=== PATIENT | male | born 1960 | race Caucasian/White ===

== ENCOUNTER 2020-05-20 02:40 | Inpatient (IN) | payer OTHER ==
[~2020-05-20] VITALS: Ht 175.3 cm; Wt 83.2 kg
[2020-05-20 02:59] LABS: BASOPHILS ABSOLUTE AUTO 0.08 K/mm3 (0.00-0.23); BASOPHILS PERCENT AUTO 1 % (0-2); EOSINOPHILS ABSOLUTE AUTO 0.17 K/mm3 (0.00-0.68); EOSINOPHILS PERCENT AUTO 2 % (0-6); Hematocrit 39.6 % (37.0-53.0); Hemoglobin 12.4 g/dL (13.5-17.5); IMMATURE GRAN ABSOLUTE AUTO 0.04 K/mm3 (0.00-0.10); IMMATURE GRAN PERCENT AUTO 0 % (0-1); LYMPHOCYTES ABSOLUTE AUTO 2.35 K/mm3 (0.84-5.20); LYMPHOCYTES PERCENT AUTO 23 % (21-46); MONOCYTES ABSOLUTE AUTO 1.31 K/mm3 (0.16-1.47); MONOCYTES PERCENT AUTO 13 % (4-13); Mean Corpuscular HGB Conc 31.3 g/dL (31.5-36.5); Mean Corpuscular Volume 93 fL (80-100); Mean Platelet Volume 10.8 fL (9.1-12.4); NEUTROPHILS ABSOLUTE AUTO 6.28 K/mm3 (1.96-9.15); NEUTROPHILS PERCENT AUTO 61 % (41-73); Platelet Count 206 K/mm3 (150-400); RDW Coefficient Variation 14.6 % (11.7-14.2); RDW Standard Deviation 50.3 fL (35.1-46.3); Red Blood Cell Count 4.27 M/mm3 (4.30-5.90); White Blood Cell Count 10.23 K/mm3 (4.00-11.30)
[2020-05-20 03:11] LABS: Alanine Aminotransfer (ALT/SGP 29 U/L (12-78); Albumin, Blood 3.3 g/dL (3.4-5.0); Albumin/Globulin Ratio 0.8 (0.8-1.8); Alk Phos 61 U/L (50-136); Anion Gap 2 mmol/L (6-16); Aspartate Aminotrans (AST/SGOT 34 U/L (12-37); Bilirubin, Total 0.6 mg/dL (0.1-1.0); Blood Urea Nitrogen 13 mg/dL (8-24); Bun/Creatinine Ratio 14.2 (12.0-20.0); CO2, Blood 28 mmol/L (21-32); Calcium, Blood 8.7 mg/dL (8.5-10.1); Chloride, Blood 110 mmol/L (98-108); Creatinine, Blood 0.91 mg/dL (0.60-1.20); Ethanol (Alcohol), Blood, Med <3 mg/dL; Globulin, Blood 4.2 g/dL (2.2-4.0); Glomerular Filtration Rate >60 (60-); Glucose, Blood 118 mg/dL (70-99); Potassium, Blood 3.8 mmol/L (3.5-5.5); Salicylate 2.7 mg/dL (2.8-20.0); Sodium, Blood 140 mmol/L (136-145); Total Protein, Blood 7.5 g/dL (6.4-8.2)
[2020-05-20 03:13] LABS: Acetaminophen, Random <2.0 ug/mL (10.0-30.0)
[2020-05-20] MEDS ORDERED: HYDPAM50 (03:19)
[2020-05-20] MEDS ORDERED: CLON.1 (03:19)
[2020-05-20] MEDS ORDERED: Naltrexone HCl50 MG PO (03:20)
[2020-05-20] MEDS ORDERED: METO25ER (03:20)
[2020-05-20] MEDS ORDERED: PROM25 (03:20)
[2020-05-20] MEDS ORDERED: TRAZ50 PO (03:20)
[2020-05-20 05:26] LABS: U Amphetamine Screen Not Detected; U Barbituate Screen Not Detected; U Benzodiazapine Screen DETECTED; U Buprenorphine Screen Not Detected; U Cannabinoids Screen DETECTED; U Cocaine Screen Not Detected; U Methadone Screen Not Detected; U Methamphetamine Screen Not Detected; U Opiates Screen Not Detected; U Oxycodone Screen Not Detected; U Phencyclidine Screen Not Detected; U Propoxyphene Screen Not Detected
--- NOTE | 2020-05-20 05:28 | NUR ---
PT ADMITTED TO ROOM ICU 5 UNDER ICU STATUS FROM ED. REPORT RECEIVED. PT PRESENTS TO ROOM CONFUSED AND DOES NOT FOLLOW DIRECTIONS. CIWA SCORING TO FOLLOW. PRECEDEX DRIP INITIATED AT 0.5 MCG/KG/HOUR AND HAS BEEN INCREASED TO 0.7 MCG'S. PT IS NOT COHERENT TO PARTICIPATE IN HISTORY OR INTERVIEW. WILL REVIEW CHART AND PLAN OF CARE FOR THIS PT.
--- NOTE | 2020-05-20 07:23 | NUR ---
ASSUMED CARE NOTE REPORT RECEIVED FROM ROGELIO JOHN. BEDSIDE REPORT DONE. PT RESTING WITH EYES CLOSED, BREATHING EVEN AND UNLABORED ON O2 AT 2LPM VIA NC IN MOUTH. SPO2 93%. RHYTHM SHOWING NORMAL SINUS WITH HR IN 50-60S. NO S/SX DISTRESS NOTED. SBW RESTRAINTS IN PLACE, PRECEDEX GTT AT 0.6MCG/KG/HR. RAMIREZ CATHETER PATENT AND DRAINING TO GRAVITY. CALL LIGHT IN REACH. WILL CONT TO MONITOR PT.
--- NOTE | 2020-05-20 08:12 | NUR ---
DR GREER ROUNDS DR GREER ROUNDED, UPDATED ON PT STATUS. NO CHANGE TO PLAN OF CARE AT THIS TIME. WILL CONT TO MONITOR PT.
[2020-05-20 08:25] LABS: Source, Urine Catheter
[2020-05-20 08:36] LABS: Appearance, Urine Clear (Clear); Bilirubin, Urine Neg (Neg); Blood, Urine 3+ (Neg); Color, Urine Yellow (P-Yellow); Glucose Qualitative, Urine Neg (Neg); Ketones, Urine Neg (Neg); Leukocyte Esterase, Urine Neg (Neg); Nitrite, Urine Neg (Neg); Protein, Urine Neg (Neg); Urobilinogen, Urine NORM (Normal)
[2020-05-20 08:41] LABS: White Blood Cells, Urine 0-2 /hpf (0-5)
[2020-05-20 08:42] LABS: Bacteria Few /hpf; Red Blood Cells, Urine 50-100 /hpf (0-2); Squamous Epithelial Cells Rare /hpf (Few)
[2020-05-20 08:46] LABS: U Amphetamine Screen Not Detected; U Barbituate Screen Not Detected; U Benzodiazapine Screen DETECTED; U Buprenorphine Screen Not Detected; U Cannabinoids Screen DETECTED; U Cocaine Screen Not Detected; U Methadone Screen Not Detected; U Methamphetamine Screen Not Detected; U Opiates Screen Not Detected; U Oxycodone Screen Not Detected; U Phencyclidine Screen Not Detected; U Propoxyphene Screen Not Detected
--- NOTE | 2020-05-20 11:23 | NUR ---
PRECEDEX GTT TITRATE TITRATED PRECEDEX GTT DOWN FROM 0.6MCG/KG/HR TO 0.4MCG/KG/HR PT PULSE IN 40S. BP STABLE. PT SNORING. AROUSABLE TO STIMULI. NO S/SX DISTRESS NOTED. WILL CONT TO MONITOR PT.
--- NOTE | 2020-05-20 11:56 | NUR ---
SHIFT NOTE PT OPENING EYES SPONTANEOUSLY, INCREASINGLY RESTLESS. PT MUMBLING AND VOCALIZATIONS DIFFICULT TO MAKE OUT, HOWEVER, PT ABLE TO STATE NAME AND . PT WITH LOOSE, NONPRODUCTIVE COUGH. WILL CONT TO MONITOR PT.
--- NOTE | 2020-05-20 14:39 | NUR ---
CALL TO DR GREER CALL TO DR GREER, NO ANSWER. AWAITING RETURN CALL REGARDING UNCONTROLLED BP. PT WITH ELEVATED BP AND LOW HR IN 40-50S. PRECEDEX GTT TITRATED TO 0.4MCG/KG/HR DUE TO LOW HR ATIVAN ADMINISTERED PRN NOTED TO HELP WITH HIGH BP ALONG WITH AGITATION AND RESTLESSNESS, ALTHOUGH EFFECT ON BP IS TEMPORARY.
--- NOTE | 2020-05-20 15:29 | NUR ---
CALL TO DR GREER CALL TO DR GREER REGARDING PT SBP IN 200S WITH DBP IN 110S. ORDER RECEIVED FOR HYDRALAZINE 20MG IV NOW ONE TIME DOSE AND HYDRALAZINE 10MG IV Q6P FOR SBP GREATER THAN 185.
--- NOTE | 2020-05-20 16:55 | NUR ---
CALL FROM PT BROTHER, CLAU PT BROTHER, CLAU, CALLED TO OBTAIN UPDATE. UNFORTUNATELY, CLAU IS NOT ON PT'S RELEAS OF VERBAL INFORMATION FORM THEREFORE I WAS UNABLE TO PROVIDE HIM AN UPDATE. CLAU WAS UNHAPPY WITH THIS AND HUNG UP AFTER STATING "WELL YOU HAVE HIM GIVE YOU THE OKAY WHEN HE WAKES UP".
--- NOTE | 2020-05-20 17:09 | NUR ---
BP CUFF FAILS AUTOMATIC BP CUFF FAILS OFF AN ON REQUIRING THE FREQUENCY OF CHECKS TO BE RESELECTED. BP HAS TRENDED DOWN SINCE ADMINISTRATION OF HYDRALAZINE. WILL CONT TO MONITOR THIS.
--- NOTE | 2020-05-20 17:22 | NUR ---
CONSENT FOR VERBAL PT AWAKE, OPENING EYES SPONTANEOUSLY AND RESPONDING TO VERBAL STIMULI. ASKED PT IF HE HAD ANY BROTHERS, HE REPLIED "YES". ASKED PT TO STATE THE BROTHERS NAMES, HE REPORTED "CHELSI, CLAU, BERLIN, AND TRELL". NILAM NARANJO RN, TO ROOM TO SECOND PT'S CONSENT FOR BROTHERS CLAU AND CHELSI WHO HAVE CALLED FOR UPDATES TO BE GIVEN INFORMATION. CONSENT FOR VERBAL RELEASE OF INFORMATION SIGNED BY THIS RN AND NILAM NARANJO RN.
--- NOTE | 2020-05-20 18:31 | NUR ---
INCREASED AGITATION PT INCREASINGLY AGITATED, WIGGLED HIMSELF DOWN IN THE BED. DESPITE SBW RESTRAINTS TO WRISTS WAS ABLE TO RIP RAMIREZ STAT LOCK OFF LEG AND PULSE OX OFF FINGER. ATIVAN 2MG IV GIVEN AND PRECEDEX GTT TITRATED UP TO 0.5MCG/KG/HR. PT BOOSTED AND REPOSITIONED WITH HELP FROM NILAM NARANJO RN. WILL CONT TO MONITOR PT.
--- NOTE | 2020-05-20 20:00 | NUR ---
PT IS RESTLESS AND AGITATED. PULLS AGAINST RESTRAINTS FREQUENTLY AND TRYING TO GET OOB. WRIST RESTRAINTS ON. ORIENTED TO PERSON. STATES YEAR "2000". WILL FOLLOW SIMPLE COMMANDS AT TIMES. THINKS HE IS AT "[facility]". SPEECH IS GARBLED. PRN ATIVAN GIVEN FOR CIWA 25. PRECEDEX GTT RUNNING WELL. BP TRENDING UP. PRN HYDRALAZINE NOT DUE YET. AFTER ATIVAN PT IS CALMING DOWN. WILL FALL TO SLEEP AT TIMES. NO SIGN OF DISTRESS.
[2020-05-21 09:02] LABS: Hematocrit 40.4 % (37.0-53.0); Hemoglobin 12.8 g/dL (13.5-17.5); Mean Corpuscular HGB Conc 31.7 g/dL (31.5-36.5); Mean Corpuscular Volume 95 fL (80-100); Mean Platelet Volume 10.7 fL (9.1-12.4); Platelet Count 191 K/mm3 (150-400); RDW Coefficient Variation 14.7 % (11.7-14.2); RDW Standard Deviation 50.8 fL (35.1-46.3); Red Blood Cell Count 4.27 M/mm3 (4.30-5.90); White Blood Cell Count 13.44 K/mm3 (4.00-11.30)
[2020-05-21 09:19] LABS: Albumin, Blood 2.9 g/dL (3.4-5.0); Anion Gap 6 mmol/L (6-16); Blood Urea Nitrogen 8 mg/dL (8-24); Bun/Creatinine Ratio 9.5 (12.0-20.0); CO2, Blood 26 mmol/L (21-32); Calcium, Blood 8.3 mg/dL (8.5-10.1); Chloride, Blood 110 mmol/L (98-108); Creatinine, Blood 0.85 mg/dL (0.60-1.20); Glomerular Filtration Rate >60 (60-); Glucose, Blood 112 mg/dL (70-99); Magnesium, Blood 1.8 mg/dL (1.6-2.4); Phosphorus, Blood 3.9 mg/dL (2.5-4.9); Potassium, Blood 3.6 mmol/L (3.5-5.5); Sodium, Blood 142 mmol/L (136-145)
--- NOTE | 2020-05-21 12:15 | NUR ---
PT ASSESSED AT 0715. PT SLEEPING IN BED WITH PRECEDEX GTT RUNNING AT 0.7MCG FOR SEVERE ETOH W/D. PT DIFFICULT TO AROUSE AND REQUIRED DEEP SUCTIONING. UNABLE TO GO DOWN NARES D/T DEVIATED SEPTUM. PT WITH LITTLE GAG AND WEAK COUGH. NT SUCTION TUBE PLACED DOWN BACK OF THROAT. COPIOUS AMTS OF THICK DARK YELLOW/LAUGHLIN SPUTUM SX'D. SATS INCREASED FROM 92% ON 2L TO 96%. PRECEDEX TITRATED DOWN TO 0.3MCG AT 0745. WITHIN 1 HR PT AWAKE THRASHING, AGITATED, PULLING ON RESTRAINTS. PT ABLE TO STATE NAME AND BIRTHDATE ONLY, SPEECH SLURRED. PT HALLUCINATING. CIWA>20. PRECEDEX INCRESEASED BACK UP TO 0.7MCG. ATIVAN GIVEN WELL WITHOUT MUCH EFFECT. HALDOL GIVEN; PT SLEEPING AND RELAXED NOW. BANANA BAG STARTED. PT'S BROTHER GIVEN UPDATE VIA PHONE.
--- NOTE | 2020-05-21 18:34 | NUR ---
PT REQUIRED PRECEDEX AT 0.7MCG FOR MAJORITY OF SHIFT WITH PRN ATIVAN PUSHES FOR SIGNIFICANT AGITATION. PT SLEEPING NOW, APPEARS COMFORTABLE/RESTFUL. PT ALSO REQUIRED FREQUENT DEEP ORAL SUCTIONING. SATS REMAINED >95% ON 2L.
--- NOTE | 2020-05-21 19:00 | NUR ---
PT SEDATED ON PRECEDEX, RESTING COMFORTABLY. ABLE TO FOLLOW SIMPLE COMMANDS, ORIENTATED TO SELF. PT ON 2L NC. VSS. BILATERAL SOFT WRIST RESTRAINTS ON DUE TO AGITATION.
--- NOTE | 2020-05-22 08:18 | NUR ---
PT SLEEPING THIS AM AT 0715, PRECEDEX GTT AT 0.7MCG FOR SEVERE ETOH W/D. PT AWOKE AT 0745 YELLING PROFANITIES. ABLE TO REDIRECT AND CALM PT SOMEWHAT. PT ORIENTED TO SELF. ABLE TO STATE YEAR WITH COAXING. PT OTHERWISE VERY CONFUSED WITH VISUAL AND AUDITORY HALLUCINATIONS. PT REQUESTED WHISKEY. PT ABLE TO COUGH, UNABLE TO CLEAR SECRETIONS COMPLETELY; REQUIRED DEEP SUCTION TO BACK OF THROAT/WEAK GAG. COPIOUS AMTS OF THICK DARK LAUGHLIN SECRETIONS SX'D. PT WITH AUDIBLE WHEEZES; RT CALLED, UDN GIVEN. PT C/O NAUSEA AND HEADACHE. TREMORS SEVERE. PT STARTED TO BECOME AGITATED; ATIVAN GIVEN.
--- NOTE | 2020-05-22 17:51 | NUR ---
PT WOKE UP AT 1500 AND ASKED A COUPLE APPROPRIATE QUESTIONS. PRECEDEX DECREASED TO 0.6MCG AND TITRATED OFF BY [id number]. RESTRAINTS REMOVED AT 1600. PT AWAKE, WATCHING TV. PT'S VOICE STILL SLURRED/GARBLED BUT STARTING TO CLEAR. PT FORGETFUL BUT CALM, COOPERATIVE, AND FOLLOWING DIRECTIONS. PT COUGHING AND CLEARING SECRETIONS. PT ABLE TO SWALLOW WATER SAFELY. LIBRIUM PO GIVEN; PT ABLE TO TAKE PO PILLS WELL. CIWA 6.
--- NOTE | 2020-05-22 18:31 | NUR ---
PT CONT TO WAKE UP MORE, SLURRED SPEECH SLOWLY IMPROVING, MEMORY IMPROVING. NICOTINE PATCH ORDERED AND PLACED PT FEELING NICOTINE W/D'S. DIET ADVANCED TOLERATED. PT FED REG TRAY; DID WELL. CONT TO CLEAR AIRWAY. 02 TITRATED DOWN TO 2L.
--- NOTE | 2020-05-22 21:16 | NUR ---
PT RESTING IN BED. IMPULSIVE AT TIMES. SPEECH IS SLURRED. STATES DECEMBER THE MONTH AND 2020 FOR THE YEAR. KNOWS THE PRESIDENT AND ABLE TO STATE HE IS IN [place]. KEEPS ASKING WHAT HAPPENED TO HIM TO WHY HE IS HERE. EASILY REDIRECTABLE. WAS ABLE TO STAND AND TAKE A COUPLE OF SIDE STEPS TOWARDS HOB AFTER HE SAT AT THE SIDE OF THE BED. GAIT IS UNSTEADY BUT DID WELL FOLLOWING DIRECTIONS. USING CALL LIGHT SOMETIMES OTHERWISE HE WILL YELL OUT "NURSE". BED ALARM ARMED FOR SAFETY.
[2020-05-23 04:47] LABS: BASOPHILS ABSOLUTE AUTO 0.06 K/mm3 (0.00-0.23); BASOPHILS PERCENT AUTO 1 % (0-2); EOSINOPHILS PERCENT AUTO 1 % (0-6); Hemoglobin 11.6 g/dL (13.5-17.5); IMMATURE GRAN ABSOLUTE AUTO 0.04 K/mm3 (0.00-0.10); IMMATURE GRAN PERCENT AUTO 0 % (0-1); LYMPHOCYTES ABSOLUTE AUTO 1.29 K/mm3 (0.84-5.20); LYMPHOCYTES PERCENT AUTO 13 % (21-46); MONOCYTES ABSOLUTE AUTO 1.83 K/mm3 (0.16-1.47); MONOCYTES PERCENT AUTO 18 % (4-13); Mean Corpuscular HGB 29.4 pg (26.0-34.0); Mean Corpuscular HGB Conc 31.4 g/dL (31.5-36.5); Mean Corpuscular Volume 94 fL (80-100); Mean Platelet Volume 10.9 fL (9.1-12.4); NEUTROPHILS ABSOLUTE AUTO 6.96 K/mm3 (1.96-9.15); NEUTROPHILS PERCENT AUTO 68 % (41-73); Platelet Count 193 K/mm3 (150-400); RDW Coefficient Variation 14.5 % (11.7-14.2); RDW Standard Deviation 50.3 fL (35.1-46.3); Red Blood Cell Count 3.94 M/mm3 (4.30-5.90); White Blood Cell Count 10.28 K/mm3 (4.00-11.30)
[2020-05-23 05:00] LABS: Albumin, Blood 2.5 g/dL (3.4-5.0); Anion Gap 3 mmol/L (6-16); Blood Urea Nitrogen 9 mg/dL (8-24); Bun/Creatinine Ratio 10.1 (12.0-20.0); CO2, Blood 30 mmol/L (21-32); Calcium, Blood 8.2 mg/dL (8.5-10.1); Chloride, Blood 109 mmol/L (98-108); Creatinine, Blood 0.89 mg/dL (0.60-1.20); Glomerular Filtration Rate >60 (60-); Glucose, Blood 100 mg/dL (70-99); Phosphorus, Blood 3.5 mg/dL (2.5-4.9); Potassium, Blood 3.4 mmol/L (3.5-5.5); Sodium, Blood 142 mmol/L (136-145)
--- NOTE | 2020-05-23 06:31 | NUR ---
SUMMARY PT RESTING IN BED. MENTATION IS CLEARING MORE THIS AM. PT IS ABLE TO STATE NAME AND , PRESIDENT, CITY, AND YEAR 2020. HE STATES MONTH JANUARY. HE IS ASKING APPROPRIATE QUESTIONS AND MAKING NEEDS KNOWN. CIWA WAS 8-16 DURING THE NIGHT. ATIVAN AND LIBRIUM WAS ALTERNATED. THIS AM CIWA IS 8 AND GAVE LIBRIUM. TOOK PT TO XRAY THIS AM AND HE WAS ABLE TO FOLLOW COMMANDS AND HAS BEEN PLEASANT AND COOPERATIVE. SPEECH IS STILL A LITTLE SLURRED BUT HE DOES NOT HAVE TEETH IN. NO SIGN OF DISTRESS THIS AM, BED ALARM ARMED FOR SAFETY.
--- NOTE | 2020-05-23 09:37 | NUR ---
CARE ASSUMED ASSESSMENT COMPLETED. PT AWAKE, ORIENTED TO SELF AND PLACE, CALM AND COOPERATIVE. CIWA SCORE 8, MEDICATED WITH TYLENOL FOR HEADACHE. PT GIVEN BREAKFAST, TOLERATED WELL, ATE INDEPENDENTLY. VSS, BED ALARMED. PT ASSISTED TO MAKE PHONE CALLS, DENIES OTHER NEEDS.
--- NOTE | 2020-05-23 17:36 | NUR ---
END OF SHIFT/TRANSFER TO MED FLOOR PT PLEASANT AND COOPERATIVE THIS SHIFT, BECAME SLIGHTLY MORE CONFUSED, THOUGHT HE WAS IN [facility]. MEDICATED WITH ATIVAN X2 THIS SHIFT AND LIBRIUM X2, HYDRALAZINE X1 FOR HTN. LS COARSE, PT C/O SOB THIS EVENING, NEB TREATMENT ADMINISTERED BY RT WITH IMPROVEMENT IN SOB AND LS. PRODUCTIVE COUGH REMAINS. IV TO R FA AND PG TO R UPPER ARM PATENT, DRESSINGS CDI. PT DID NOT HAVE A GOOD APPETITE TODAY, STATES "EVERYTHING TASTES LIKE METAL," DENIES NAUSEA. NO EMESIS, NO SEIZURE ACTIVITY, NO AGITATION THIS SHIFT. DC E BUSINESS MANAGER IN TO SPEAK WITH PT, PT DISCHARGED FROM [facility] TODAY, REPORTED PLAN IS TO STAY AT [facility] UNTIL A RESIDENTIAL ETOH TX BED OPENS UP [place] THAT PT CAN BE ADMITTED TO. REPORT TO ROGELIO WARE, PT TO MEDICAL FLOOR RM 326 VIA WITH CHART AND BELONGINGS.
--- NOTE | 2020-05-23 18:37 | NUR ---
PT TRANSFERED FROM ICU PT TRANSFERED. ORIENTED TO ROOM. CALL LIGHT & PHONE IN REACH. PT CONFUSED. DIRECTABLE HOWEVER. CONFUSES THE CALL LIGHT & THE PHONE OFTEN. WILL CONTINUE TO MONITOR UNTIL TURNOVER IS COMPLETE.
--- NOTE | 2020-05-23 22:18 | NUR ---
CIWAS CONTINUE, CURRENTLY 8, CLIMBING OUT OF BED, SPIT DENTURES ON FLOOR, ATIVAN 2 MG IV GIVEN, BED ALARM 0N. CALL LIGHT IN REACH
--- NOTE | 2020-05-24 03:31 | NUR ---
SHIFT SUMMARY PT CURRENTLY DETOXING FROM ETOH, HAS BEEN NONRECEPTIVE TO REDIRECTION. CIWA'S 8-10 AND ATIVAN AND LIBRIUM, SEE MAR FOR DETAILS, AND STILL AGITATED. PLACED IN YAIR VEST FOR SAFETY, TO PREVENT HIS PULLING OUT RAMIREZ HE TRIED TO FALL OUT OF BED. CURRENTLY AGITATION ESCALATED TO CUSSING AND CALLING OUT. HALDOL IV 3 MG ADMINISTERED. WILL CONTINUE TO ATTEMPT TO REDIRECT TO CALM PT. CALL LIGHT IN REACH
--- NOTE | 2020-05-24 17:50 | NUR ---
CIWA SCORE 17; SINCE START OF THIS SHIFT, PATIENT CONTINUOUSLY TRYING TO GET OOB, PULLING AGAINST RESTRAINTS. A&O TO SELF ONLY, STATING THAT HE NEEDS TO "GO ACROSS THE STREET", MUMBLING TO HIMSELF, OFFERED ASSISTANCE TO CALL HIS BROTHER BUT NO NUMBER FOUND. HAS BEEN GIVEN A TOTAL OF 9 MG ATIVAN IV, 3 MG IV HALDOL, SCHEDULED LIBRIUM, ALL WITH NO EFFECT. PREVIOUS CIWA SCORE AT 1200 WAS ALSO 17. SPOKE TO DR. HOWARD BY PHONE, REQUESTED TRANSFER TO ICU PT MAY NEED PRECEDEX GTT FOR A SHORT TIME UNTIL DETOX IS COMPLETED. TRANSFER ORDER RECEIVED AND PT MOVED TO ICU ROOM 9 AT 1800. GAVE HALDOL 3 MG IV JUST PRIOR TO TRANSFER PER DR. HOWARD AND PT WAS CALM DURING TRANSFER.
--- NOTE | 2020-05-24 18:57 | NUR ---
Recieved report from Kavitha MERCADO.Patient arrived in baylee and UE soft wrist restraints. He is arousable with minimal response. He is on RA and sats low 90%'s. e was released from restraints and was a four person transfer to bed and reapplied restraints and baylee. His HR has been 130-170 and medicated with Zyprexa IM and Ativan 2 mg. Systolic 101 and rates 60's He is still awake and occassionally is pulling at restraints and trying to sit up. Gave report to Collin MERCADO for noc shift
--- NOTE | 2020-05-24 20:03 | NUR ---
ASSUMPTION OF CARE: PT AWAKE BUT NOT ORIENTED. SPEECH IS GARGBLED. WILL NOD HEAD YES TO QUESTIONS. OCC PULLING AT RESTRAINTS TRYING TO SIT UP. IN ST HR 90-160S, IRREGULAR, SBP 100S. LUNG SOUNDS CLEAR. OCC PRODUCTIVE COUGH-ABLE TO CLEAR OWN SECRETIONS. PG NICK-PATENT AND SL. SKIN IS INTACT. WILL CONTINUE TO MONITOR
[2020-05-25 03:39] LABS: Albumin, Blood 2.8 g/dL (3.4-5.0); Anion Gap 3 mmol/L (6-16); Blood Urea Nitrogen 7 mg/dL (8-24); Bun/Creatinine Ratio 7.3 (12.0-20.0); CO2, Blood 31 mmol/L (21-32); Calcium, Blood 8.4 mg/dL (8.5-10.1); Chloride, Blood 111 mmol/L (98-108); Creatinine, Blood 0.96 mg/dL (0.60-1.20); Glomerular Filtration Rate >60 (60-); Glucose, Blood 97 mg/dL (70-99); Phosphorus, Blood 4.6 mg/dL (2.5-4.9); Potassium, Blood 2.9 mmol/L (3.5-5.5); Sodium, Blood 145 mmol/L (136-145)
--- NOTE | 2020-05-25 05:06 | NUR ---
POTASSIUM THIS AM 2.9. SPOKE TO DR NEWMAN. ORDERS RECEIVED FOR 40MEQ KCL IV X 1.
--- NOTE | 2020-05-25 06:00 | NUR ---
SHIFT SUMMARY: PT SLEPT MAJORITY OF SHIFT. WHEN AWAKE PT WAS AGITATED REQUIRING A DOSE OF ATIVAN X 1 AND A DOSE OF HALDOL X1. SPEECH SEEMED MORE CLEAR THIS AM, BUT STILL GARBLED. PT BELIEVES HE IS IN A REHAB FACILITY. PT O2 NEEDS INCREASED STEADILY T/O SHIFT, FABIANA WHEN SLEEPING. PT IS COUGHING UP MOD AMT OF WHITE FROTHY SECRETIONS THAT HAVE REQ SOME SUCTIONING. CURRENTLY ON HIGH FLOW NC AT 10L. PT DESATS TO 88-89% OCC. PT IS IN SR WITH HR IN THE 60-80S. SBP IN THE 130S. PT HAD ONE SMALL BM THIS AM. PG TO NICK INF WITH TKO AND KCL. WILL PASS REPORT TO RACHEL MERCADO
--- NOTE | 2020-05-25 07:12 | NUR ---
Recieved report from Collin MERCADO. Patient supine in bed with HOB at 30 degrees. He responds to his name and follows minimal directions. He yells out occassioanlly and talks to himself frequently. He is on 10L O2 via humidified high flow NC and sats 94%. He has PowerGlide to NICK dressing intact and site WNL's and is infusing first of 2 K rider. His in attends and he is incontinent of urine. He is hypertensive [address]. He is in baylee vest and bilateral soft wrist restraints, skin and circulation checked. He is very tremulous and VALENCIA.
--- NOTE | 2020-05-25 09:30 | NUR ---
Patient slightly more awake and able to still follow minimal commands. Oral care performed as well as am care. Patient tolerated small amounts of apple sauce fo meds and was able to swallow and cough to clear. he has required ongoing hourly suction to clear oral secretions whit thin secretions. He remains on 10 L O2 via high flow humidified and sats 94%. He continues to rest off and on. He pulls at restraints while awake and leans forwards and states he wants up, bilateral soft wrist and baylee remain in place.
--- NOTE | 2020-05-25 11:30 | NUR ---
Patient has been resting. He arouses frequently and talks to self. He is very tremulous. Brother called and gave update and will be down 06/25 around 1200. He remains omn 10L O2 via high flow NC humidified and sats low 90's. He continues to need frequent suction for thick white secretions he is coughing up, The O2 needs to be placed in mouth while sleeping as he is a mouth breather. He had full linen change and bath and attends change. VSS, See EMR. Bilateral soft wrist restraints dc'd at 1030 and he has not been pulling at anything. Tequila remains on as he trys to sit up .
--- NOTE | 2020-05-25 13:30 | NUR ---
No significant changes with patient. Restraints remain off and is mostly directable if he starts to reach at anything and has not been pulling at lines or tubes. He has tolerated pills with [id number] with verey close obs and direction, then oral care done right afterwards.
--- NOTE | 2020-05-25 15:30 | NUR ---
Patient was having increased secretions and started to desat and increased O2 to 13 L O2 and coached him to coughing and cleared secretions and was able to reduce O2 back to the 9 L with High flow NC humidified and sits in his mouth He continues to rest and awakens frequently.VSS, See EMR. Oral care done
--- NOTE | 2020-05-25 17:25 | NUR ---
Patient currently resting on 9L O2 via high flow NC humidified in mouth whiule sleeping. He awakens to verbal stimuli, but not very understandable. He remains out of soft wrist restraints and just has baylee on and tolerates well. He has NS TKO infusing in NICK powerglide. Still very tremulous, no fine motor skills.
--- NOTE | 2020-05-25 19:40 | NUR ---
ASSUMPTION OF CARE: PT ASLEEP IN ROOM. PER REPORT PT IS STILL CONFUSED, CLEARING A LITTLE, ABLE TO FOLLOW COMMANDS. PT IN SR, HR IN THE 60S, SBP IN THE 110S. LUNG SOUNDS ARE COARSE AND DIM IN BASES. CURRENTLY ON 7L HIGH FLOW NC, SPO2 >90%. PT IS REQUIRING FREQUENT ORAL SUCTIONING DUE TO LARGE AMOUNTS OF THICK ORAL SECRETIONS. PER REPORT PT IS ABLE TO TAKE PO MEDS WITH APPLE SAUCE. PT NOT ABLE TO USE URINAL AND NEEDS ASSISTANCE WITH TURNS. PG TO NICK. HAS NS RUNNING AT [facility]. WILL CONTINUE TO MONITOR
--- NOTE | 2020-05-25 21:36 | NUR ---
PT IS HAVING A DIFFICULT TIME CLEARING SECRETIONS, HAS A WEAK COUGH, AND MINIMAL GAG REFLEX. SECRETIONS ARE THICK AND LARGE. HOLDING PO MEDS FOR NOW.
--- NOTE | 2020-05-25 21:37 | NUR ---
CALL PLACED TO JOHANN JUDGE RE PO ZYPREXA. REQUEST TO CHANGE FROM PO TO EITHER SL OR IM. ORDERS RECEIVED TO KEEP ZYPREXA DOSING THE SAME BUT CHANGE TO IM. ZYPREXA 2.5MG IM Q6.
--- NOTE | 2020-05-25 22:25 | NUR ---
UPON COMING ON SHIFT PT WAS ASLEEP. LUNG SOUNDS WERE COARSE AND PT SOUNDED GURGLY WITH A WEAK COUGH. HAS REQUIRED FREQUENT ORAL/DEEP SUCTIONING, BUT WAS HOLDING SATS ABOVE 90% ON 7LNC. DURING DEEP SUCTIONING PT HAD VERY MINIMAL GAG REFLEX. MEDS HELD D/T PT DIFFICULTY CLEARING SECRETIONS. PT IS CURRENTLY REQUIRING ADDITIONAL O2. ON 15L HIGH FLOW NC. PT WAS ON 7L THEN 9L AFTER DESATTING INTO MID 80S. SPO2 NEVER GOT ABOVE 88%. CHRIS RT CALLED TO ASSESS. O2 INCREASED TO 15L. PT WAS SUCTIONED ORALLY AND THEN DEEP SUCTION WAS PERFORMED. PT HAS MINIMAL GAG REFLEX. SECRETIONS ARE THICK AND LARGE. NEB TREATMENT GIVEN WITH LITTLE EFFECT. PT IS CURRENTLY SITTING IN THE CHAIR POSITION. SOUNDS LESS GURGLY AT THIS TIME AND SATS ARE HOLDING AT >90%. WILL CONTINUE TO MONITOR
--- NOTE | 2020-05-25 23:09 | NUR ---
PT DOWN TO 10L NC. SPO2 >90%.
--- NOTE | 2020-05-26 02:05 | NUR ---
PT MORE ALERT, ABLE TO NOD TO ANSWER QUESTIONS, FOLLOWING MORE COMMANDS. ON 10L NC. SPO2 >90%. PT IS ABLE TO COUGH AND DEEP BREATH WHEN ASKED. STILL REQUIRES FREQ SUCTIONING TO CLEAR SECRETIONS AND ORAL CARE. WILL CONTINUE TO MONITOR
--- NOTE | 2020-05-26 03:33 | NUR ---
PT DOWN TO 6LNC. SPO2 >90%
[2020-05-26 03:53] LABS: BASOPHILS ABSOLUTE AUTO 0.09 K/mm3 (0.00-0.23); BASOPHILS PERCENT AUTO 1 % (0-2); EOSINOPHILS ABSOLUTE AUTO 0.02 K/mm3 (0.00-0.68); EOSINOPHILS PERCENT AUTO 0 % (0-6); Hematocrit 41.2 % (37.0-53.0); Hemoglobin 13.1 g/dL (13.5-17.5); IMMATURE GRAN ABSOLUTE AUTO 0.05 K/mm3 (0.00-0.10); IMMATURE GRAN PERCENT AUTO 0 % (0-1); LYMPHOCYTES ABSOLUTE AUTO 1.01 K/mm3 (0.84-5.20); LYMPHOCYTES PERCENT AUTO 6 % (21-46); MONOCYTES ABSOLUTE AUTO 2.53 K/mm3 (0.16-1.47); MONOCYTES PERCENT AUTO 16 % (4-13); Mean Corpuscular HGB 29.8 pg (26.0-34.0); Mean Corpuscular HGB Conc 31.8 g/dL (31.5-36.5); Mean Corpuscular Volume 94 fL (80-100); Mean Platelet Volume 10.6 fL (9.1-12.4); NEUTROPHILS PERCENT AUTO 77 % (41-73); Platelet Count 291 K/mm3 (150-400); RDW Coefficient Variation 14.8 % (11.7-14.2); RDW Standard Deviation 51.7 fL (35.1-46.3); Red Blood Cell Count 4.39 M/mm3 (4.30-5.90)
[2020-05-26 04:06] LABS: Albumin, Blood 2.8 g/dL (3.4-5.0); Anion Gap 7 mmol/L (6-16); Blood Urea Nitrogen 10 mg/dL (8-24); Bun/Creatinine Ratio 10.2 (12.0-20.0); CO2, Blood 26 mmol/L (21-32); Calcium, Blood 8.8 mg/dL (8.5-10.1); Chloride, Blood 112 mmol/L (98-108); Creatinine, Blood 0.98 mg/dL (0.60-1.20); Glomerular Filtration Rate >60 (60-); Glucose, Blood 115 mg/dL (70-99); Magnesium, Blood 1.7 mg/dL (1.6-2.4); Phosphorus, Blood 3.7 mg/dL (2.5-4.9); Potassium, Blood 3.3 mmol/L (3.5-5.5); Sodium, Blood 145 mmol/L (136-145)
--- NOTE | 2020-05-26 05:35 | NUR ---
SHIFT SUMMARY: PT SEEMS TO HAVE IMPROVED T/O SHIFT. O2 NEEDS HAVE STEADILY DECREASED. IS CURRENTLY ON 6LNC HIGH FLOW NC. PT IS MORE ALERT AND WILL DEEP BREATH AND COUGH WHEN ASKED. STILL HAVING SOME DIFFICULTY CLEARING OWN SECRETIONS AND NEEDS FREQUENT SUCTIONING. SECRETIONS CONTINUE TO BE LARGE AND THICK. ORAL CARE WAS PROVIDED Q 2. PT SOUNDS LESS GURGLY OR "WET". VSS T/O NIGHT. ZYPREXA WAS HELD T/O NIGHT D/T OVERSEDATION. PT HAD PERIODS OF REST/SLEEP DURING NIGHT. WHEN AWAKE PT DID NOT APPEAR AGITATED. HE DID EXPRESS SOME FRUSTRATION OVER FREQUENT SUCTIONING BUT OVERALL TOLERATED IT WELL. WILL PASS REPORT TO ONCOMING SHIFT.
--- NOTE | 2020-05-26 05:57 | NUR ---
PT CURRENTLY ON 4L HIGH FLOW NC. SPO2 >90%. TOLERATING WELL.
--- NOTE | 2020-05-26 08:54 | NUR ---
[place] of Care: Care assumed at 0700hr. Patient sleeping and difficult to rouse. Attempts to open eyes to verbal stimuli, and with persistence , able to get patient to cough on command. Otherwise not following any commands, very drowsy. Also attempted to get out of bed (feet off side of bed), baylee vest in place. Very weak cough, but with deep oral suctioning, able to expel copious amounts of thick brown secretions, no gag noted with suctioning. SpO2-92-94% on 4L/high-flow NOC at shift change, then titrated up to 6L, spO2 90-92%. PO medications held per concern for aspiration. Incontinent of urine, attends in place. Power-glide to NICK patent and intact, infusing without difficulty. Dr. Clark to room at approx 0815hr. Concerns r/t O2 demands, thick/copious secretions, and lack of gag reflex. Received instructions that Dr. Clark would change Abx to IV form, plan to continue to monitor at this time. Appears calm and comfortable, without distress at this time.
[2020-05-26 10:26] LABS: PCO2 Arterial 47.8 mmHg (35-45); PO2 Arterial 66.7 mmHg (80-100); pH Blood Arterial 7.36 (7.35-7.45)
--- NOTE | 2020-05-26 18:02 | NUR ---
Shift Summary: Patient's LOC slowly improved throughout shift. Remains drowsy, but now able to stay awake without stimulation, and follow simple commands. Now responding verbally, mumbled speech at times, but comprehendible, oriented to self and place. Calm and cooperative with staff, but slightly irritated this evening r/t being NPO, wants to drink water. PO fluids held until patient becomes more alert, speech clears, and speech therapist is able to evaluate patient. VSS throughout shift. Supplemental O2 requirement decreased throughout shift. Remains on high-flow NC, now at 3L, but was up to 7L this morning, SpO2-90-96%. Copious amounts of secretions suctioned throughout shift. Several deep oral suction with cough, and x1 NT suctioning. Amount of secretions decreased this evening. Strength of cough has also improved. [place] vest remains in place as patient continues to attempt to get out of bed without assistance. Incontinent of urine x2, no BM. Power-glide to NICK remains patent and intact. New peripheral IV placed to LFA, infusing without difficulty. Call light in reach, but patient has yet to use at this time. Appears calm and comfortable at this time. Will continue to monitor until report to NOC shift RN.
--- NOTE | 2020-05-26 20:00 | NUR ---
ASSUMPTION OF CARE: PT AWAKE IN BED. MORE ALERT. IS STILL IMPULSIVE AND ATTEMPTS TO GET OUT OF BED. HOWEVER HE IS EASILY REDIRECTABLE. SPEECH IS GETTING MORE CLEAR. CAN MAKE OUT SOME WORDS. HE IS HELPFUL WITH TURNS AND REPOSITIONING. IN SR. VSS. LUNG SOUNDS ARE COARSE. PT IS STILL HAVING COPIOUS AMOUNTS OF SECRETIONS THAT ARE THICK AND LAUGHLIN. PTS COUGH IS STILL WEAK AND REQUIRES FREQUENT SUCTIONING AND ORAL CARE. PT IS ABLE TO SAY WHEN HE NEEDS SUCTIONING. REMAINS INCONTINENT OF URINE. PT HAS A POWERGLIDE TO NICK AND A PERIPHERAL TO LFA. CLINIMIX INFUSING AT 75MLS/HR AND NS TKO. WILL CONTINUE TO MONITOR
[2020-05-27 03:40] LABS: BASOPHILS ABSOLUTE AUTO 0.08 K/mm3 (0.00-0.23); BASOPHILS PERCENT AUTO 1 % (0-2); EOSINOPHILS PERCENT AUTO 1 % (0-6); Hematocrit 38.1 % (37.0-53.0); Hemoglobin 11.6 g/dL (13.5-17.5); IMMATURE GRAN ABSOLUTE AUTO 0.05 K/mm3 (0.00-0.10); IMMATURE GRAN PERCENT AUTO 0 % (0-1); LYMPHOCYTES ABSOLUTE AUTO 1.25 K/mm3 (0.84-5.20); LYMPHOCYTES PERCENT AUTO 10 % (21-46); MONOCYTES ABSOLUTE AUTO 1.78 K/mm3 (0.16-1.47); MONOCYTES PERCENT AUTO 15 % (4-13); Mean Corpuscular HGB 28.9 pg (26.0-34.0); Mean Corpuscular HGB Conc 30.4 g/dL (31.5-36.5); Mean Corpuscular Volume 95 fL (80-100); Mean Platelet Volume 10.5 fL (9.1-12.4); NEUTROPHILS ABSOLUTE AUTO 8.79 K/mm3 (1.96-9.15); NEUTROPHILS PERCENT AUTO 73 % (41-73); Platelet Count 295 K/mm3 (150-400); RDW Coefficient Variation 14.6 % (11.7-14.2); RDW Standard Deviation 50.6 fL (35.1-46.3); Red Blood Cell Count 4.01 M/mm3 (4.30-5.90); White Blood Cell Count 12.05 K/mm3 (4.00-11.30)
[2020-05-27 03:55] LABS: Albumin, Blood 2.4 g/dL (3.4-5.0); Anion Gap 3 mmol/L (6-16); Blood Urea Nitrogen 15 mg/dL (8-24); Bun/Creatinine Ratio 14.9 (12.0-20.0); CO2, Blood 31 mmol/L (21-32); Chloride, Blood 114 mmol/L (98-108); Creatinine, Blood 1.01 mg/dL (0.60-1.20); Glomerular Filtration Rate >60 (60-); Glucose, Blood 137 mg/dL (70-99); Phosphorus, Blood 4.3 mg/dL (2.5-4.9); Potassium, Blood 3.6 mmol/L (3.5-5.5); Sodium, Blood 148 mmol/L (136-145)
--- NOTE | 2020-05-27 05:29 | NUR ---
PT BECOMING INCREASINGLY AGITATED, TRYING TO GET OUT OF BED. STATED HE IS LEAVING THIS PLACE, HE NEEDS TO TALK TO HIS BROTHER SO HIS BROTHER CAN PICK HIM UP. REQUESTING WATER AND BECOMES IRRITATED WHEN IT IS EXPLAINED TO HIM WHY HE CANT HAVE WATER AT THIS TIME. DECLINED MOUTH MOISTERIZER. WHEN ELECTRODE CLEANER AND MYSELF ENTERED ROOM HE HAD HIS LEGS OVER THE EDGE OF THE BED AND WAS ATTEMPTING TO UNTIE HIS VEST RESTRAINT. HE WAS ALSO TAKING HIS NC OFF FREQUENTLY RESULTING IN DESATS TO 83-85%. WAS UNABLE TO REDIRECT HIM TO LEAVE NC ON. WAS PLACED BACK IN BILAT WRIST RESTRAINTS. NC PLACED BACK ON PT AND HIS SATS ARE CURRENTLY 93-95%.
--- NOTE | 2020-05-27 05:49 | NUR ---
SHIFT SUMMARY: NO ACUTE CHANGES SINCE LAST NOTE. HR AND SBP STABLE. ON 9LNC. SPO2 >90%. CLINIMIX AND NS INFUSING. PT NEEDED LESS SUCTIONING THE NIGHT PROGRESSED. PT WAS ABLE TO REPOSITION SELF NEEDED. HOWEVER WHEN HE WENT BACK IN WRIST RESTRAINTS HE REQUIRED ASSISTANCE WITH TURNS. WILL PASS REPORT TO ONCOMING ROGELIO
--- NOTE | 2020-05-27 07:28 | NUR ---
ASSUMED CARE: PT RESTING IN BED, AWAKE, TALKING TO STAFF BUT SPEECH IS SLURRED AND DIFFICULT TO UNDERSTAND AT TIMES. NC IN MOUTH AT 9L. PT BEGAN COUGHING AND WAS UNABLE TO CLEAR, SUCTION PROVIDED WITH LARGE AMOUNTS OF YELLOW SECRETIONS REMOVED. YAIR AND WRIST RESTRAINTS IN PLACE.
--- NOTE | 2020-05-27 07:57 | NUR ---
TITRATED PT DOWN TO 2L, SATTING MID 90S ON THIS BUT DESATS TO 90% ON RA. ALERT AND ORIENTED TO SELF, PLACE, FAMILY, YEAR, AND PRESIDENT. SPEECH DIFFICULT TO UNDERSTAND. SON AT BEDSIDE. PT RECOGNIZED HIM AND VERBALIZED PERMISSION TO GIVE INFORMATION TO SON. WRIST RESTRAINTS REMOVED DUE TO COOPERATION.
--- NOTE | 2020-05-27 08:51 | NUR ---
DISCUSSED PT'S NEED FOR BM WITH DR GREER BUT DUE TO NPO STATUS NO MEDS AT THIS TIME, AWAITING SPEECH THERAPY RECOMMENDATIONS
--- NOTE | 2020-05-27 14:49 | NUR ---
PT CONTINUING TO TRY TO GET OUT OF CHAIR. NOT FOLLOWING DIRECTIONS, NOT USING CALL LIGHT. YAIR VEST IN PLACE.
--- NOTE | 2020-05-27 18:21 | NUR ---
SHIFT SUMMARY: PT RESTING IN BED, YAIR VEST IN PLACE. ZYPREXA NOT NEEDED THIS SHIFT DUE TO PT'S COOPERATION. PT'S SON WAS AT BEDSIDE THIS AM. PCU STATUS. 2L NC IN PLACE. ST PASSED PT TO EAT PUREE DIET WITH ASSISTANCE. NO FURTHER NEEDS OR CONCERNS.
--- NOTE | 2020-05-27 20:00 | NUR ---
INITAL SHIFT ASSESSMENT / TRANSFER TO PCU PT IS ALERT AND ORIENTED TO HIMSELF AND SITUATION. BEDSIDE REPORT WAS RECIEVED FROM OFF GOING RN. PT'S SPEECH IS SLOW AND SOFT, BUT HE IS ABLE TO ANSWER ANY QUESTIONS NEEDED. VITALS ARE STABLE AT THIS TIME. PT STATES HE HAS CHRONIC BACK PAIN AND LEFT KNEE PAIN. PT DENIES ANY OTHER PAIN. WILL MONITOR PAIN AND MEDICATE INDICATED. THERE ARE SCABS TO LEFT KNEE HEALING. RT IN ROOM TO GIVE PT A BREATHING TX WELL VEST CPT. PT DOES NOT HAVE ANY SOB AT REST. HE DOES HAVE A COURSE COUGH. PRODUCTIVE AND DAY SHIFT REPORTS HELPING PT WITH SUCTIONING. 2L N/C IN PLACE. PT HAS YAIR VEST IN PLACE. HE STATES HE WAS UP TO THE CHAIR AND BSC TODAY. REPORTS BEING VERY SHAKY WHEN STANDING. DENIES ANY HEADACHES. PT DOES HAVE CLINIMIX RUNNING ORDERED INTO POWER GLIDE TO RIGHT ARM. TKO LINE WELL. PT HAS CALL LIGHT IN HAND AND THIS RN REVIEWED HOW TO USE CALL LIGHT. REPORT WAS GIVEN TO FLOOR PRESS OPERATOR RALPH. PT WAS TRANSFERED BY THIS RN WELL UNSTACKER. RECIEVING RN AND CHARGE FLOOR PRESS OPERATOR IN ROOM. PT WAS STABLE UPON THIS RN LEAVING ROOM.
--- NOTE | 2020-05-27 20:37 | NUR ---
PT ARRIVED FROM ICU AND TRANSFERED TO BED W/ SLIDER SHEET; PT ALERT AND ORIENTED TO SELF; YAIR VEST IN PLACE; DENIES CHEST PAIN; NSR NOTED ON TELE W/ HR 70'S; O2 SATS >94 ON 3L NC; PT ORIENTED TO UNIT AND CALL LIGHT; CALL LIGHT IN PLACE; BED IN LOWEST POSITION
--- NOTE | 2020-05-28 03:13 | NUR ---
UPDATE PT'S BED ALARMING & PT FOUND TO BE OUT OF VEST RESTRAINT, OUT OF BED WOBBLING & MUMBLING INCOHERENTLY & CURSING; POWER GLIDE PULLED; FIELD OPERATIONS TECHNICIAN NOTIFIED; PT CURRENTLY BACK IN BED W/ RESTRAINT DRINKING HONEY THICK JUICE; CALL LIGHT IN REACH; BED IN LOWEST POSITION.
--- NOTE | 2020-05-28 06:25 | NUR ---
SHIFT SUMMARY PT A&O TO SELF; CONFUSED AND FOUND TO BE OUT OF YAIR VEST, STANDING AT BEDSIDE WOBBLING 2X THIS SHIFT; HAS DESIRE TO USE BSC, BUT REQUIRES SIGNIFICANT HELP & IS UNSTABLE; DENIES CHEST PAIN; NSR NOTED ON TELE; PO FLUIDS BROUGHT TO PT PRN, HONEY THICKENED; HEAT PAD BROUGHT TO PT FOR BACK PAIN RELIEF; PT UP TO CHAIR THIS AM; O2 SATS >93 ON 3L NC; CALL LIGHT IN REACH; TAB ALARM IN PLACE; WILL CONTINUE TO MONITOR UNTIL HAND OFF TO DAY SHIFT RN.
--- NOTE | 2020-05-28 16:57 | NUR ---
SHIFT SUMMARY PT HAS BEEN A&O X3, SPEECH REMAINS MUMBLED BUT PT IS ABLE TO MAKE HIS NEEDS KNOWN. VSS, O2 WEANED TO 1 L VIA NC. RESP UNLABORED, PT UP TO CHAIR FOR MEALS, SUPERVISION/ASSISTANCE PROVIDED. PT WAS TRANSFERED TO ROOM 344 THIS AFTERNOON, BELONGINGS & MEDS SENT TO ROOM. PT WAS ABLE TO WALK TO ROOM 344 FROM U-4 USING FWW & GAIT BELT. HE WAS FOLLOWED BY A W/C & 2 PERSON ASSIST FOR SAFETY. PT DENIED DIZZINESS, GAIT REMAINED STEADY. REPORT GIVEN TO JITENDRA Mejia RN.
--- NOTE | 2020-05-28 17:05 | NUR ---
1700 PT TRANSFERRED TO MEDICAL FLOOR SCU RM 344 FORM PCU 4. PT AMBULATED FROM PCU TO MEDICAL FLOOR WITH FWW WITH OCCUPATIONAL THERAPY ASSISTANT AND WIRELESS SALES MANAGER AND TOLERATED WELL. PT DENIES SOB, N/V. PT REPORTS PAIN TO NECK AND BACK, WILL MEDICATE PER ORDERS.
--- NOTE | 2020-05-29 04:22 | NUR ---
SHIFT SUMMARY ALERT, DIFFICULT TO UNDERSTAND AT TIMES R/T MUMBLED HUSHED SPEECH. COOPERATIVE WITH CARE. C/O PAIN/DISCOMFORT X1; MEDICATED PER EMAR. CIWA's NEGATIVE T/O NIGHT. APPEARED TO REST OFF AN ON. ABX INFUSED WITHOUT COMPLICATION TO PG IN NICK. NO ACUTE CHANGES NOTED OVERNIGHT. HTN NOTED, HOWEVER APPEARS ON TREND WITH PREVIOUS PRESSURES. MULTIPLE REMINDERS GIVEN TO UTILIZE CALL SYSTEM; HOWEVER CONTINUES TO EXIT BED IMPULSIVELY. BED REAMINS IN LOWEST POSITION; ALARM ON. CALL LIGHT AND BELONGINGS WITHIN REACH. WCTM. REPORT TO ONCOMING RN.
--- NOTE | 2020-05-29 18:03 | NUR ---
SHIFT SUMMARY. A&OX4, INTERMITTENT FORGETFULNESS, EASILY REORIENTATED, COGNITION IMPROVED WHEN COMPARED TO YESTERDAY.. PT APPEARS TO HAVE A MORE STEADY GATE TODAY WHEN COMPARED TO YESTERDAY. BED AND CHAIR ALARM UTILIZES FOR SAFETY. PT DENEIS SOB, N/V. PT LUNGS WITH FAINT COARSENESS IN BASES. PT AMBULATED ENTIRE MEDICAL FLOOR WITH FILLER SPREADER AND SPO2 WHEN HE RETURNED WAS 96% ON RA. PT REPORTS CHRONIC PAIN TO NECK AND BACK, PAIN MANAGED WELL WITH CURENT ORDERS.
--- NOTE | 2020-05-30 03:25 | NUR ---
SHIFT SUMMARY ALERT, ABLE TO MAKE NEEDS KNOWN. ANSWERS QUESTIONS APPROPRIATELY. COOPERATIVE WITH CARE. C/O PAIN/DISCOMFORT X1; MEDICATED PER EMAR. 1P SBA TO BATHROOM; GAIT APPEARS TO BE STABLIZING, STILL A BIT WOBBLY. IV ABX INFUSED WITHOUT COMPLICATION TO PG IN NICK. NO ACUTE CHANGES NOTED OVERNIGHT. APPEARED TO REST T/O SHIFT. BED REMAINED IN LOWEST POSITION; ALARM ON. CALL LIGHT AND BELONGINGS WITHIN REACH. WCTM. REPORT TO ONCOMING RN.
--- NOTE | 2020-05-30 17:56 | NUR ---
SHIFT SUMMARY. A&OX4, SBA WITH GB TO BATHROOM, PLEASANT AND COOPERATIVE WITH CARE. PT DENIES SOB, N/V, GOOD MEAL INTAKE. ST REEVALUATED TODAY, PT IS NOW SOFT BITE SIZED DIET AND AND THIN LIQUIDS. PT REPORTS CHRONIC BACK/NECK PAIN THAT IS MANAGED WELL WITH APAP. PT IS MOTIVATED TO RETURN TO [facility] POST DISCHARGE, PT HAS MADE CALLS TO [facility] AND IS ARRANGING WITH THEM WHEN HE MAY RETURN SECONDARY TO BED AVAILIBILTY. NO OTHER CHANGES OR CONCERNS.
--- NOTE | 2020-05-31 04:01 | NUR ---
SHIFT SUMMARY: VSS. AFEB. 02 SAT 95% ON RA. LSCTA W/DIM BASES. PT AMB W/SBA, GAIT STABLE. PLEASANT, COOPERATIVE, ABLE TO COMMUNICATE NEEDS. MED W/TYLENOL FOR CHRONIC BACK PAIN X2. PT HAS PETECHIAL RASH ON BLE. NO ACUTE CHANGES OVERNIGHT. WILL CONT TO MONITOR.
[2020-05-31] MEDS ORDERED: B-1100 M1 PO (09:56)
[2020-05-31] MEDS ORDERED: NICO21TP TOP (09:56)
[2020-05-31] MEDS ORDERED: NIFE30ER PO (09:57)
[2020-05-31] MEDS ORDERED: AMOCLA875 PO (09:57)
[2020-05-31] MEDS ORDERED: ALBU90OI INH (09:57)
--- NOTE | 2020-05-31 10:28 | NUR ---
DISCHARGE INSTRUCTIONS REVIEWED WITH PT. POWERGLIDE DC'D INTACT. PT REPORTS HE HAS ALRADY CALLED [facility] THIS AM AND HE NEEDS TO SET UP ANOTHER ASSESSMENT WITH THEM FOR OUTPATIENT ALCOHOL TREATMENT. PT DECLINED FOR ASSISTANCE WITH FINDING A NEW PCP, STATES HE WILL FIND ONE IN [facility]. RX FAXED TO [facility]. INSTRUCTIONS GIVEN ON ASPIRATION PRECAUTIONS WELL INSTRUCTED FOR NO STRAW PER SPEECH THERAPY. PT AWAITING RIDE HOME FROM BROTHER AT THIS TIME.
--- NOTE | 2020-05-31 11:28 | NUR ---
PT DISCARGED HOME AT 1116, ESCORTED OUT VIA W/C TO D/C HOME WITH BROTHER. BELONGING RECEIVED FROM SECURITY OUT OF SAFE PRIOR TO DISCHARGE.
== END 2020-05-31 11:18 | disposition home or self-care (01) | DRG 896 ==
LOC: ER 02:40 → ICUW 03:36 → MEDS 03:36 → ICUE 03:36 → MEDS 05-23 18:04 → ICUW 05-24 18:11 → PCU 05-27 20:23 → MEDS 05-28 17:00
PROVIDERS: Emergency Medicine; Internal Medicine; ADMIT Internal Medicine
DX: F10.231 Alcohol dependence with withdrawal delirium (principal); J96.01 Acute respiratory failure with hypoxia; G92 Toxic encephalopathy; J69.0 Pneumonitis due to inhalation of food and vomit; R65.20 Severe sepsis without septic shock; A41.9 Sepsis, unspecified organism; F17.200 Nicotine dependence, unspecified, uncomplicated; I10 Essential (primary) hypertension; D72.829 Elevated white blood cell count, unspecified; I16.0 Hypertensive urgency; E87.6 Hypokalemia; Z78.1 Physical restraint status; Y90.0 Blood alcohol level of less than 20 mg/100 ml; F99 Mental disorder, not otherwise specified
CPT/HCPCS: 31720; 36415; 36600; 51702; 71045; 71046; 80053; 80069; 81001; 82803; 83605; 83735; 85025; 85027; 87070; 87077; 87147; 87186; 87205; 92526; 92610; 94640; 94667; 94760; 96361; 96374; 97112; 97162; 97165; 97530; 99285-25; A9270; C1751; C9113; G0480; J0295; J0360; J1630; J1650; J2060; J2405; J2543; J3411; J3475; J3480; J7030; J7042; J7050

== ENCOUNTER 2020-06-16 11:39 | Emergency (ER) | payer OTHER ==
[~2020-06-16] VITALS: Ht 175.3 cm; Wt 86.2 kg
[~2020-06-16 11:39] MED LIST: ALBU90OI INH; AMOCLA875 PO; B-1100 M1 PO; CLON.1; HYDPAM50; METO25ER; NICO21TP TOP; NIFE30ER PO; Naltrexone HCl50 MG PO; PROM25; TRAZ50 PO
[2020-06-16 12:19] LABS: BASOPHILS PERCENT AUTO 1 % (0-2); EOSINOPHILS ABSOLUTE AUTO 0.22 K/mm3 (0.00-0.68); EOSINOPHILS PERCENT AUTO 3 % (0-6); Hematocrit 37.6 % (37.0-53.0); Hemoglobin 11.5 g/dL (13.5-17.5); IMMATURE GRAN ABSOLUTE AUTO 0.04 K/mm3 (0.00-0.10); IMMATURE GRAN PERCENT AUTO 1 % (0-1); LYMPHOCYTES ABSOLUTE AUTO 2.05 K/mm3 (0.84-5.20); LYMPHOCYTES PERCENT AUTO 24 % (21-46); MONOCYTES ABSOLUTE AUTO 1.18 K/mm3 (0.16-1.47); MONOCYTES PERCENT AUTO 14 % (4-13); Mean Corpuscular HGB 28.2 pg (26.0-34.0); Mean Corpuscular HGB Conc 30.6 g/dL (31.5-36.5); Mean Corpuscular Volume 92 fL (80-100); Mean Platelet Volume 10.5 fL (9.1-12.4); NEUTROPHILS ABSOLUTE AUTO 4.91 K/mm3 (1.96-9.15); NEUTROPHILS PERCENT AUTO 58 % (41-73); Platelet Count 307 K/mm3 (150-400); RDW Standard Deviation 51.4 fL (35.1-46.3); Red Blood Cell Count 4.08 M/mm3 (4.30-5.90)
[2020-06-16 12:59] LABS: Alanine Aminotransfer (ALT/SGP 20 U/L (12-78); Albumin, Blood 3.4 g/dL (3.4-5.0); Albumin/Globulin Ratio 0.8 (0.8-1.8); Alk Phos 63 U/L (50-136); Anion Gap 6 mmol/L (6-16); Aspartate Aminotrans (AST/SGOT 22 U/L (12-37); Bilirubin, Total 0.5 mg/dL (0.1-1.0); Blood Urea Nitrogen 7 mg/dL (8-24); Bun/Creatinine Ratio 7.2 (12.0-20.0); CO2, Blood 25 mmol/L (21-32); Calcium, Blood 8.9 mg/dL (8.5-10.1); Chloride, Blood 109 mmol/L (98-108); Creatinine, Blood 0.97 mg/dL (0.60-1.20); Globulin, Blood 4.5 g/dL (2.2-4.0); Glomerular Filtration Rate >60 (60-); Glucose, Blood 102 mg/dL (70-99); Sodium, Blood 140 mmol/L (136-145); Total Protein, Blood 7.9 g/dL (6.4-8.2)
== END 2020-06-16 13:34 | disposition home or self-care (01) ==
LOC: ER 11:39
PROVIDERS: Emergency Medicine
DX: R79.89 Other specified abnormal findings of blood chemistry (principal); I10 Essential (primary) hypertension; F17.210 Nicotine dependence, cigarettes, uncomplicated; Z79.899 Other long term (current) drug therapy
CPT/HCPCS: 36415; 71046; 80053; 83880; 85025; 93005; 93010; 99284-25

== ENCOUNTER 2020-08-22 09:35 | Day surgery (SDC) | payer OTHER ==
[~2020-08-22] VITALS: Ht 170.2 cm; Wt 89.1 kg
[2020-08-22] MEDS ORDERED: Prinivil10 MG PO (10:02)
[2020-08-22] MEDS ORDERED: ATOR20 PO (10:03)
[2020-08-22] MEDS ORDERED: FURO20 PO (10:03)
[2020-08-22] MEDS ORDERED: Aspir 8181 MG PO (10:04)
[2020-08-22 10:54] LABS: BASOPHILS ABSOLUTE AUTO 0.13 K/mm3 (0.00-0.23); BASOPHILS PERCENT AUTO 1 % (0-2); EOSINOPHILS ABSOLUTE AUTO 0.39 K/mm3 (0.00-0.68); EOSINOPHILS PERCENT AUTO 4 % (0-6); Hematocrit 24.3 % (37.0-53.0); Hemoglobin 7.6 g/dL (13.5-17.5); IMMATURE GRAN ABSOLUTE AUTO 0.04 K/mm3 (0.00-0.10); IMMATURE GRAN PERCENT AUTO 0 % (0-1); LYMPHOCYTES ABSOLUTE AUTO 2.47 K/mm3 (0.84-5.20); LYMPHOCYTES PERCENT AUTO 23 % (21-46); MONOCYTES ABSOLUTE AUTO 0.93 K/mm3 (0.16-1.47); MONOCYTES PERCENT AUTO 9 % (4-13); Mean Corpuscular HGB 27.5 pg (26.0-34.0); Mean Corpuscular HGB Conc 31.3 g/dL (31.5-36.5); Mean Corpuscular Volume 88 fL (80-100); Mean Platelet Volume 10.3 fL (9.1-12.4); NEUTROPHILS ABSOLUTE AUTO 6.98 K/mm3 (1.96-9.15); NEUTROPHILS PERCENT AUTO 64 % (41-73); Platelet Count 540 K/mm3 (150-400); RDW Coefficient Variation 14.5 % (11.7-14.2); RDW Standard Deviation 46.3 fL (35.1-46.3); Red Blood Cell Count 2.76 M/mm3 (4.30-5.90); White Blood Cell Count 10.94 K/mm3 (4.00-11.30)
--- NOTE | 2020-08-22 15:32 | NUR ---
DISCHARGE GONE OVER WITH PT, PT VERBALIZES UNDERSTANDING OF INSTRUCTIONS. RIGHT RADIAL SITE STABLE. NO BLEEDING OR HEMATOMA NOTED. CLOTH DOT PLACED AT RIGHT RADIAL SITE. SALINE LOCK TAKEN OUT WITH CATHETER INTACT. PT TO PRIVATE VEHICLE PER W/C PER 1 STAFF.
== END 2020-08-22 15:30 | disposition home or self-care (01) ==
LOC: MHTC 09:35
PROVIDERS: Internal Medicine Cardiovascular Disease
DX: I35.0 Nonrheumatic aortic (valve) stenosis (principal); D64.9 Anemia, unspecified; I10 Essential (primary) hypertension; E78.5 Hyperlipidemia, unspecified; Z79.899 Other long term (current) drug therapy; Z87.891 Personal history of nicotine dependence
CPT/HCPCS: 85025; 93005; 93010; 93454; 93458; 99152; 99153; C1769; C1894; J1644; J2250; J3010; J7030; Q9967

== ENCOUNTER 2024-05-21 10:06 | Inpatient (IN) | payer MEDICARE, OTHER ==
[2024-05-21] VITALS (19 sets, daily range): BP systolic 108–168; BP diastolic 76–116
[~2024-05-21] VITALS: Ht 175.3 cm; Wt 116.0 kg
[~2024-05-21 10:06] MED LIST changes: +ATOR20 PO; +Aspir 8181 MG PO; +FURO20 PO; +Prinivil10 MG PO
[2024-05-21 10:27] LABS: BASOPHILS ABSOLUTE AUTO 0.04 K/mm3 (0.00-0.23); BASOPHILS PERCENT AUTO 0 % (0-2); EOSINOPHILS ABSOLUTE AUTO 0.02 K/mm3 (0.00-0.68); EOSINOPHILS PERCENT AUTO 0 % (0-6); Hematocrit 39.5 % (37.0-53.0); Hemoglobin 13.7 g/dL (13.5-17.5); IMMATURE GRAN ABSOLUTE AUTO 0.06 K/mm3 (0.00-0.10); IMMATURE GRAN PERCENT AUTO 1 % (0-1); LYMPHOCYTES ABSOLUTE AUTO 0.91 K/mm3 (0.84-5.20); LYMPHOCYTES PERCENT AUTO 9 % (21-46); MONOCYTES ABSOLUTE AUTO 1.62 K/mm3 (0.16-1.47); MONOCYTES PERCENT AUTO 16 % (4-13); Mean Corpuscular HGB 30.1 pg (26.0-34.0); Mean Corpuscular HGB Conc 34.7 g/dL (31.5-36.5); Mean Corpuscular Volume 87 fL (80-100); Mean Platelet Volume 9.1 fL (9.1-12.4); NEUTROPHILS ABSOLUTE AUTO 7.71 K/mm3 (1.96-9.15); NEUTROPHILS PERCENT AUTO 74 % (41-73); Platelet Count 274 K/mm3 (150-400); RDW Coefficient Variation 12.5 % (11.7-14.2); RDW Standard Deviation 39.9 fL (35.1-46.3); Red Blood Cell Count 4.55 M/mm3 (4.30-5.90); White Blood Cell Count 10.36 K/mm3 (4.00-11.30)
[2024-05-21] MEDS ORDERED: HYDROCODONE-AC1 EAC7 PO (10:34)
[2024-05-21] MEDS ORDERED: PANTOPRAZOLE SO40 M2 PO (10:34)
[2024-05-21] MEDS ORDERED: CARVEDILOL12.5 MG PO (10:34)
[2024-05-21] MEDS ORDERED: AMLODIPINE BESY10 MG PO (10:34)
[2024-05-21] MEDS ORDERED: Ipratropium/Albuterol SulF 2.5-0.5MG/3 ML Amp INH ONE (10:45)
[2024-05-21] MEDS ORDERED: Furosemide 10 MG/ML 4ML Vial IV ONE ×2 (10:45→16:50)
[2024-05-21] MEDS ORDERED: MethylPREDNISolone Sod Succ 125 MG Vial IV ONE (10:45)
[2024-05-21] MEDS ORDERED: HYDROcodone 10-APAP 325 TAB PO ONE (10:55)
[2024-05-21] MEDS ORDERED: Azithromycin 500 MG in NS 250 ML IV ONE (11:05)
[2024-05-21] MEDS ORDERED: CefTRIAXone Sodium 1,000 MG in NS 50 ML IV ONE (11:05)
[2024-05-21 11:12] LABS: Albumin, Blood 3.4 g/dL (3.4-5.0); Albumin/Globulin Ratio 0.9 (0.8-1.8); Bilirubin, Total 1.4 mg/dL (0.1-1.0); Bun/Creatinine Ratio 13.1 (12.0-20.0); Calcium, Blood 8.8 mg/dL (8.5-10.1); Creatinine, Blood 0.53 mg/dL (0.60-1.20); Globulin, Blood 3.7 g/dL (2.2-4.0); Potassium, Blood 4.2 mmol/L (3.5-5.5); Total Protein, Blood 7.1 g/dL (6.4-8.2)
[2024-05-21 11:40] LABS: Calcium, Ionized (POC) 1.07 mmol/L (1.10-1.46); Chloride (POC) 76 mmol/L (98-108); Creatinine (POC) 0.7 mg/dL (0.8-1.3); Glucose (ISTAT POC) 107 mg/dL (70-99); Potassium (POC) 4.3 mmol/L (3.5-5.5); Sodium (POC) 112 mmol/L (135-148); Total CO2 (POC) 27 mmol/L (21-32)
[2024-05-21] MEDS ORDERED: Sodium Chloride 3% 500 ML IV SCH ×2 (11:45→18:50)
[2024-05-21 12:25] LABS: Influenza A, PCR NEGATIVE (NEGATIVE); Influenza B, PCR NEGATIVE (NEGATIVE); Resp Syncytial Virus, PCR NEGATIVE (NEGATIVE); SARS-Cov-2 (COVID-19) PCR, MMC NEGATIVE (NEGATIVE)
[2024-05-21] MEDS ORDERED: Acetaminophen 325 MG TABLET PO PRN (12:45)
[2024-05-21] MEDS ORDERED: Albuterol 2.5 MG/3 ML VIAL INH PRN (13:50)
[2024-05-21] MEDS ORDERED: Carvedilol 6.25 MG Tab PO SCH ×2 (14:00→18:30)
[2024-05-21] MEDS ORDERED: Nicotine 14 MG PATCH TOP SCH (14:00)
[2024-05-21] MEDS ORDERED: Irbesartan 150 MG Tab PO SCH (14:00)
[2024-05-21] MEDS ORDERED: Aspirin 81 MG Chew PO SCH (14:00)
[2024-05-21] MEDS ORDERED: Thiamine HCl 100 MG Tab PO SCH (14:00)
[2024-05-21] MEDS ORDERED: Folic Acid 1 MG TAB PO SCH (14:00)
[2024-05-21] MEDS ORDERED: HYDROcodone 10-APAP 325 TAB PO PRN ×2 (15:50→19:35)
--- NOTE | 2024-05-21 17:46 | NUR ---
SHIFT SUMMARY PATIENT PLACED ON BIPAP THIS AFTERNOON TO ASSIST WITH DYSPNEA AND DESATS TO 87%. PATIENT TOLERATES WELL. SETTINGS 17/07 WITH A 6L BLEED IN. SPO2 91% ON BIPAP. PATIENT REMAINS A&O X 4. 20ML 3% SALINE OVER 1 HOUR GIVEN AND WAITING FOR LAB RECHECK FOR SODIUM LEVEL. LASIX 40MG IV X 1 GIVEN THIS EVENING. PATIENT HAS HAD GOOD URINE OUTPUT. NO OTHER CHANGES THIS SHIFT.
[2024-05-21] MEDS ORDERED: Ipratropium/Albuterol SulF 2.5-0.5MG/3 ML Amp INH SCH (18:40)
--- NOTE | 2024-05-21 19:00 | NUR ---
ASSUMED CARE ASSUMED CARE OF PATIENT. AWAKE AND ALERT. ORIENTED AND COOPERATIVE WITH CARE. WATCHING TV AT THIS TIME. C/O CHRONIC RIGHT HIP PAIN. REPOSITIONS SELF IN BED. O2 4L NC AT THIS TIME- SATS STABLE. MONITOR SHOWS AFIB WITH BBB, RATE 90s-100s. BP STABLE. VOIDING WITHOUT DIFFICULTY. 3% NS INFUSING PER ORDER- PERIPHERAL IV WITH GOOD BLOOD FLOW. SEE SHIFT ASSESSMENT FOR FULL ASSESSMENT.
[2024-05-21] MEDS ORDERED: MELATONIN5 M1 PO (19:31)
[2024-05-21] MEDS ORDERED: Melatonin 5 MG Tablet PO PRN (19:35)
[2024-05-21] MEDS ORDERED: Lactobacil 2-S.Thermo-Bifido 1 1 Cap PO SCH (21:00)
[2024-05-22] VITALS (19 sets, daily range): BP systolic 113–167; BP diastolic 66–116
[2024-05-22] MEDS ORDERED: MethylPREDNISolone Sod Succ 125 MG Vial IV SCH
[2024-05-22 03:45] LABS: BASOPHILS ABSOLUTE AUTO 0.01 K/mm3 (0.00-0.23); BASOPHILS PERCENT AUTO 0 % (0-2); EOSINOPHILS PERCENT AUTO 0 % (0-6); Hemoglobin 13.7 g/dL (13.5-17.5); IMMATURE GRAN ABSOLUTE AUTO 0.02 K/mm3 (0.00-0.10); IMMATURE GRAN PERCENT AUTO 0 % (0-1); LYMPHOCYTES ABSOLUTE AUTO 0.36 K/mm3 (0.84-5.20); LYMPHOCYTES PERCENT AUTO 6 % (21-46); MONOCYTES ABSOLUTE AUTO 0.18 K/mm3 (0.16-1.47); MONOCYTES PERCENT AUTO 3 % (4-13); Mean Corpuscular HGB 30.8 pg (26.0-34.0); Mean Corpuscular HGB Conc 35.1 g/dL (31.5-36.5); Mean Corpuscular Volume 88 fL (80-100); Mean Platelet Volume 9.5 fL (9.1-12.4); NEUTROPHILS ABSOLUTE AUTO 5.28 K/mm3 (1.96-9.15); NEUTROPHILS PERCENT AUTO 90 % (41-73); Platelet Count 298 K/mm3 (150-400); RDW Coefficient Variation 12.6 % (11.7-14.2); RDW Standard Deviation 40.1 fL (35.1-46.3); Red Blood Cell Count 4.45 M/mm3 (4.30-5.90); White Blood Cell Count 5.85 K/mm3 (4.00-11.30)
[2024-05-22 04:06] LABS: Albumin, Blood 3.2 g/dL (3.4-5.0); Albumin/Globulin Ratio 0.8 (0.8-1.8); Bilirubin, Total 0.7 mg/dL (0.1-1.0); Bun/Creatinine Ratio 15.6 (12.0-20.0); Calcium, Blood 9.1 mg/dL (8.5-10.1); Creatinine, Blood 0.64 mg/dL (0.60-1.20); Globulin, Blood 3.9 g/dL (2.2-4.0); Potassium, Blood 4.1 mmol/L (3.5-5.5); Total Protein, Blood 7.1 g/dL (6.4-8.2)
[2024-05-22] MEDS ORDERED: Pantoprazole Sodium 20 MG Tab PO SCH (06:00)
--- NOTE | 2024-05-22 06:16 | NUR ---
SHIFT SUMMARY NO ACUTE CHANGES DURING NOC. SLEPT VERY LITTLE. MEDICATED WITH NORCO 10/325MG PO X 3 DOSES DURING NOC FOR C/O CHRONIC RIGHT HIP PAIN. TOLERATING DIET WELL. VSS. AFEBRILE. PT WORE BIPAP INTERMITTENTLY- 16/8, BUR 14, FIO2 45%. WHEN OFF BIPAP, PT IS ON 4L NC. SATS STABLE. VOIDING WITHOUT DIFFICULTY. AM SODIUM LEVEL IS 122. WILL REPORT TO ONCOMING RN WHEN AVAILABLE.
[2024-05-22] MEDS ORDERED: Enoxaparin 40 MG/0.4 ML SYR SC SCH (09:00)
[2024-05-22] MEDS ORDERED: CefTRIAXone Sodium 1,000 MG in NS 100 ML IV SCH (09:00)
[2024-05-22] MEDS ORDERED: Azithromycin 250 MG Tab PO SCH (09:00)
[2024-05-22] MEDS ORDERED: Furosemide 10 MG/ML 4ML Vial IV SCH (09:00)
[2024-05-22] MEDS ORDERED: Carvedilol 6.25 MG Tab PO ONE ×2 (09:25→10:00)
[2024-05-22] MEDS ORDERED: Irbesartan 150 MG Tab PO ONE (09:50)
[2024-05-22] MEDS ORDERED: Empagliflozin 10 MG TAB PO SCH (10:00)
[2024-05-22 10:38] LABS: Magnesium, Blood 1.7 mg/dL (1.6-2.4); Thyroid Stimulating Hormone 0.842 uIU/mL (0.360-4.800)
--- NOTE | 2024-05-22 11:07 | NUR ---
SHIFT ASSESSMENT ASSUMED CARE OF PT @ 0700, BEDSIDE REPORT RECEIVED FROM FERNANDO MERCADO. PT A&OX4, CALM AND COOPERATIVE WITH STAFF, FOLLOWING COMMANDS. C/O MODERATE CHRONIC PAIN TO HIP, MEDICATED PER JAN. INITIALLY ON 6LPM O2 VIA NC, TITRATED DOWN TO 4 LPM CURRENTLY c SATS >90%. PT STATES " I FEEL MUCH BETTER THAN YESTERDAY". PT UP TO BEDSIDE CHAIR WITH CANE AND SBA, TOLERATED WELL. PT USING URINAL. NO BM THUS FAR.
[2024-05-22] MEDS ORDERED: Carvedilol 25 MG Tab PO SCH ×2 (17:00)
[2024-05-22] MEDS ORDERED: DOPamine 400 MG/Dextrose 250 ML Bag IV ONE (17:04)
[2024-05-22] MEDS ORDERED: EPINEPhrine HCl 0.1 MG/ML 10ML SYR XX ONE (17:04)
[2024-05-22] MEDS ORDERED: Naloxone HCl 1MG / ML 2ML SYR IV ONE (17:04)
[2024-05-22] MEDS ORDERED: Etomidate 2MG / ML 10ML Vial XX ONE (17:04)
[2024-05-22] MEDS ORDERED: Rocuronium Bromide 10 MG/ML 5ML Injection IV ONE (17:04)
[2024-05-22] MEDS ORDERED: Sodium Bicarb 8.4% 50 mEq Syringe IV ONE (17:04)
--- NOTE | 2024-05-22 17:37 | NUR ---
SHIFT SUMMARY PT REMAINS A&OX4, FOLLOWING COMMANDS, AMBULATING TO BSC WITH SBA & CANE. DENIES DIZZINESS OR INCREASED SOB WITH MILD EXERTION. REMAINS ON 4LPM O2 VIA NC. TRIALED BIPAP THIS AFTERNOON BUT DID NOT TOLERATE FOR LONG. SATS REMAIN >90% ON NC. STRONG APPETITE, THIS NURSE EDUCATED PT REGARDING DIET CHOICES, PT RECEPTIVE.
--- NOTE | 2024-05-22 18:46 | NUR ---
arrival to pcu patient arrived to pcu at 1840. report received from dudley. patient is alert and oriented x4. neuro is intact. patient reports pain in right hip and groin rated at 7. medicated per emar. patient has chronic right hip pain. denies chest pain/pressure. reports shortness of breath with exertion. spo2 >90% on 4l nc. bipap is in room for nighttime use.
[2024-05-22] MEDS ORDERED: Apixaban 5 MG Tab PO SCH (21:00)
[2024-05-23] VITALS (12 sets, daily range): BP systolic 83–175; BP diastolic 61–106
[2024-05-23 05:40] LABS: BASOPHILS ABSOLUTE AUTO 0.02 K/mm3 (0.00-0.23); BASOPHILS PERCENT AUTO 0 % (0-2); EOSINOPHILS PERCENT AUTO 0 % (0-6); Hematocrit 40.4 % (37.0-53.0); Hemoglobin 13.4 g/dL (13.5-17.5); IMMATURE GRAN ABSOLUTE AUTO 0.14 K/mm3 (0.00-0.10); IMMATURE GRAN PERCENT AUTO 1 % (0-1); LYMPHOCYTES ABSOLUTE AUTO 0.37 K/mm3 (0.84-5.20); LYMPHOCYTES PERCENT AUTO 2 % (21-46); MONOCYTES ABSOLUTE AUTO 0.88 K/mm3 (0.16-1.47); MONOCYTES PERCENT AUTO 5 % (4-13); Mean Corpuscular HGB 30.1 pg (26.0-34.0); Mean Corpuscular HGB Conc 33.2 g/dL (31.5-36.5); Mean Corpuscular Volume 91 fL (80-100); Mean Platelet Volume 9.4 fL (9.1-12.4); NEUTROPHILS ABSOLUTE AUTO 15.01 K/mm3 (1.96-9.15); NEUTROPHILS PERCENT AUTO 91 % (41-73); Platelet Count 339 K/mm3 (150-400); RDW Coefficient Variation 13.1 % (11.7-14.2); RDW Standard Deviation 43.4 fL (35.1-46.3); Red Blood Cell Count 4.45 M/mm3 (4.30-5.90); White Blood Cell Count 16.42 K/mm3 (4.00-11.30)
[2024-05-23 06:12] LABS: Calcium, Blood 9.8 mg/dL (8.5-10.1); Creatinine, Blood 0.68 mg/dL (0.60-1.20); Potassium, Blood 4.6 mmol/L (3.5-5.5)
--- NOTE | 2024-05-23 06:35 | NUR ---
SHIFT SUMMARY PATIENT ALERT AND ORIENTED X4. MEDICATED PER EMAR FOR PAIN. HAD NO COMPMLAINTS OF SHORTNESS OF BREATH. WAS ON 4-6 LITERS O2 VIA NC TO HELP MAINTAIN SPO2 >90%. VITAL SIGNS STABLE, AFIB ON TELE, RATE CONTROLLED. NO ACUTE ISSUES NOTED OVERNIGHT. WILL CONTINUE TO MONITOR. CALL LIGHT WITHIN REACH.
[2024-05-23] MEDS ORDERED: Irbesartan 150 MG Tab PO SCH (09:00)
[2024-05-23] MEDS ORDERED: propofoL 100 ML IV ONE (13:44)
[2024-05-23] MEDS ORDERED: FentaNYL Citrate 50 MCG/ML 2 ML Injection ONE ×3 (14:21→15:25)
[2024-05-23] MEDS ORDERED: FentaNYL Citrate 50 MCG/ML 2 ML Injection IV ONE ×4 (14:25→15:30)
--- NOTE | 2024-05-23 14:43 | NUR ---
Transfer note This am, pt alert, oriented x4; calm and cooperative with care. Pupils: right 2mm brisk reaction, left 3mm sluggish, MD aware. Pt up with sba in room. Pt reporting chronic right hip/groin pain, medicated x2 with prn norco. Pt reporting sob with activity, pt found taking off o2 while ambulated to bathroom, educated pt on need to continue to where o2 while ambulating. Spo2 >90% on 4l o2 via nc, ls exp wheezes noted. Tele afib this am, 90-110's, bp wnl. Abd moderate distender, firm to palp, pt states normal; pt states he needs a stool softener, MD aware. Edema noted to ble. Other vss. At approx 1320; this RN responded to Rapid Response to room, pt was laying in bed, zoll pads being placed on patient, no rate noted per tele; pt still awake and breathing at this time, answering questions. When QRS disappeared, code blue called, and compressions started. Pt pushing staff off while CPR in progress then losing consciousness when CPR stopped, attempted pacing. ER MD to room, intubated at bedside, and transfered to ICU.
[2024-05-23 14:47] LABS: BASOPHILS ABSOLUTE AUTO 0.03 K/mm3 (0.00-0.23); BASOPHILS PERCENT AUTO 0 % (0-2); EOSINOPHILS ABSOLUTE AUTO 0.01 K/mm3 (0.00-0.68); EOSINOPHILS PERCENT AUTO 0 % (0-6); Hematocrit 43.4 % (37.0-53.0); Hemoglobin 14.1 g/dL (13.5-17.5); IMMATURE GRAN ABSOLUTE AUTO 0.69 K/mm3 (0.00-0.10); IMMATURE GRAN PERCENT AUTO 3 % (0-1); LYMPHOCYTES ABSOLUTE AUTO 0.85 K/mm3 (0.84-5.20); LYMPHOCYTES PERCENT AUTO 4 % (21-46); MONOCYTES ABSOLUTE AUTO 1.57 K/mm3 (0.16-1.47); MONOCYTES PERCENT AUTO 8 % (4-13); Mean Corpuscular HGB 30.3 pg (26.0-34.0); Mean Corpuscular HGB Conc 32.5 g/dL (31.5-36.5); Mean Corpuscular Volume 93 fL (80-100); Mean Platelet Volume 9.1 fL (9.1-12.4); NEUTROPHILS ABSOLUTE AUTO 17.75 K/mm3 (1.96-9.15); NEUTROPHILS PERCENT AUTO 85 % (41-73); NRBC ABSOLUTE 0.04 K/mm3 (0.00-0.02); NRBC Auto 0.2 /100 WBC (0.0-0.2); Platelet Count 342 K/mm3 (150-400); RDW Coefficient Variation 13.4 % (11.7-14.2); RDW Standard Deviation 45.8 fL (35.1-46.3); Red Blood Cell Count 4.65 M/mm3 (4.30-5.90)
[2024-05-23] MEDS ORDERED: propofoL 100 ML IV SCH (14:50)
[2024-05-23] MEDS ORDERED: Dopamine/Dextrose 250 ML IV SCH (14:55)
[2024-05-23 15:05] LABS: Bun/Creatinine Ratio 24.8 (12.0-20.0); Calcium, Blood 9.1 mg/dL (8.5-10.1); Creatinine, Blood 0.89 mg/dL (0.60-1.20); Phosphorus, Blood 5.6 mg/dL (2.5-4.9); Potassium, Blood 4.4 mmol/L (3.5-5.5)
[2024-05-23] MEDS ORDERED: NS 500 ML IV ONE (15:10)
[2024-05-23] MEDS ORDERED: Midazolam HCl 1MG / ML 2ML Vial ONE (15:24)
[2024-05-23] MEDS ORDERED: Midazolam HCl 1MG / ML 2ML Vial IV ONE (15:30)
[2024-05-23 15:46] LABS: International Normalized Ratio 1.04; Prothrombin Time Results 11.1 Sec (9.7-11.5)
[2024-05-23 16:05] LABS: PCO2 Arterial 48 mmHg (35-45); PO2 Arterial 56 mmHg (80-100); pH Blood Arterial 7.44 (7.35-7.45)
[2024-05-23 16:30] LABS: Source, Urine Foley catheter
[2024-05-23 16:38] LABS: Appearance, Urine Hazy (Clear); Bilirubin, Urine Neg (Neg); Blood, Urine 2+ (Neg); Color, Urine Yellow (P-Yellow); Glucose Qualitative, Urine 4+ (Neg); Ketones, Urine Neg (Neg); Leukocyte Esterase, Urine Neg (Neg); Nitrite, Urine Neg (Neg); Protein, Urine 3+ (Neg); Specific Gravity, Urine 1.015 (1.003-1.022); Urobilinogen, Urine NORM (Normal)
[2024-05-23 16:50] LABS: Hyaline Casts 0-2 /lpf (0-2); Mucus Light (0-Heavy)
[2024-05-23 16:51] LABS: Squamous Epithelial Cells Rare /hpf (Few)
[2024-05-23 16:52] LABS: Bacteria Many /hpf
--- NOTE | 2024-05-23 17:14 | NUR ---
ARRIVAL TO ICU/SUMMARY PT BROUGHT TO ICU 7 AT 1350. PT IS INTUBATED, RT BAGGING PT. PT IS BEING TRANSCUTANEOUSLY PACED WITH 106MA RATE IN 60S. DOPAMINE INFUSING AT AT 5MCG/KG/MIN. AT 1358, PT IN PEA AND COMPRESSIONS STARTED. CODE BLUE CALLED. DR SHER AND DR IGNACIO AT BEDSIDE. SEE CODE BLUE SHEET FOR IN-DEPTH INFO. ROSC AT 1406. DOPAMINE INFUSING AT 15MCG/KG/MIN. PT IN SVT WITH RATE IN 150S-160S AND THEN TO AFLUTTER. PT NO LONGER BEING TRANSCUTANEOUSLY PACED. 2 EKGS DONE, SHOWN TO DR SHER AND DR ELIZABETH. LIJ CENTRAL LINE PLACED, R RADIAL ART LINE PLACED. PT RECEIVING PROPOFOL AND TRANSITIONED TO EPI GTT. PT CURRENTLY RECEIVING PROPOFOL 40MCG/KG/MIN AND EPI 5MCG/MIN. PT HAS MYOCLONIC MOVEMENTS OF UPPER AND LOWER EXTREMITIES. PUPILS APPEAR EQUAL, R PUPIL BRISK AND L PUPIL SLUGGISH. PT INTUBATED WITH 7.5/24CM. VENT SETTINGS AC/VC 18/500/10/100%. AFLUTTER ON MONITOR WITH RATE IN 60S. SBP 140S WITH MAP >65 PER RADIAL ART LINE. OGT PLACED AND CONNECTED TO LIS. ABDOMEN DISTENDED AND FIRM. TEMP RAMIREZ PLACED AND DRAINING HAZY YELLOW URINE TO GRAVITY. CORE TEMP 98.3. PT WAS REACHING TOWARD ETT, PLACED IN BILAT SOFT WRIST RESTRAINTS. BED IN LOW POSITION.
[2024-05-23] MEDS ORDERED: Cetylpyridinium Chloride 1 EA MISC MT SCH (20:00)
--- NOTE | 2024-05-23 22:21 | NUR ---
ASSUMED CARE CARE WAS ASSUMED OF PT AT 1900. PT INTUBATED AND SEDATED. PROPOFOL GTT INFUSING, SEE FLOWSHEET. PT RESPONDS TO PHYSICAL STIMULI, WILL MOVE LEGS AROUND THE BED WHEN ADJUSTING BLANKETS, GRIMACES TO ORAL CARE, AND PT WILL ATTEMPT TO REACH UPWARD TOWARDS ETT WITH NOXIOUS STIMULI. RASS -4, CPOT 0. PUPILS EQUAL WITH FIXED UPWARD GAUZE. PT IN BILATERAL SOFT WRIST RESTRAINTS FOR SAFETY. VENT SETTINGS AC/VC 18/500/10/85%. O2 SATS > 90%. CARDIAC MONITORING REFLECTS AFIB, HR 60s-70s. ARTERIAL LINE TO RIGHT RADIAL, DRESSING C/D/I. EPI GTT INFUSING, SEE FLOWSHEET. CVC TO LIJ PATENT, DRESSING C/D/I WITH POSITIVE BLOOD DRAWBACK. PIV TO RAC SL. TEMP RAMIREZ PATENT AND DRAINING TO GRAVTIY. OG TO LIS.
[2024-05-24] MEDS ORDERED: Hydrogen Peroxide 1.5 % Solution MT SCH
[2024-05-24 04:12] LABS: BASOPHILS ABSOLUTE AUTO 0.01 K/mm3 (0.00-0.23); BASOPHILS PERCENT AUTO 0 % (0-2); EOSINOPHILS PERCENT AUTO 0 % (0-6); Hemoglobin 12.3 g/dL (13.5-17.5); IMMATURE GRAN ABSOLUTE AUTO 0.05 K/mm3 (0.00-0.10); IMMATURE GRAN PERCENT AUTO 0 % (0-1); LYMPHOCYTES ABSOLUTE AUTO 0.35 K/mm3 (0.84-5.20); LYMPHOCYTES PERCENT AUTO 3 % (21-46); MONOCYTES PERCENT AUTO 8 % (4-13); Mean Corpuscular HGB 30.5 pg (26.0-34.0); Mean Corpuscular HGB Conc 34.2 g/dL (31.5-36.5); Mean Corpuscular Volume 89 fL (80-100); NEUTROPHILS ABSOLUTE AUTO 10.61 K/mm3 (1.96-9.15); NEUTROPHILS PERCENT AUTO 89 % (41-73); Platelet Count 261 K/mm3 (150-400); RDW Coefficient Variation 13.2 % (11.7-14.2); RDW Standard Deviation 43.6 fL (35.1-46.3); Red Blood Cell Count 4.03 M/mm3 (4.30-5.90); White Blood Cell Count 11.92 K/mm3 (4.00-11.30)
[2024-05-24 04:28] LABS: Bun/Creatinine Ratio 23.7 (12.0-20.0); Calcium, Blood 9.1 mg/dL (8.5-10.1); Creatinine, Blood 0.8 mg/dL (0.60-1.20); Magnesium, Blood 1.6 mg/dL (1.6-2.4); Phosphorus, Blood 3.2 mg/dL (2.5-4.9); Potassium, Blood 3.6 mmol/L (3.5-5.5)
--- NOTE | 2024-05-24 05:17 | NUR ---
SHIFT SUMMARY PT REMAINS INTUBATED AND SEDATED. PROPOFOL GTT INFUSING, SEE FLOWSHEET. NO ACUTE CHANGES THIS SHIFT. PT UNABLE TO FOLLOW COMMANDS, RESPONDS TO PAINFUL STIMULI. RASS -4, CPOT 0. PT REMAINS IN BILATERAL SOFT WRIST RESTRAINTS FOR SAFETY. VENT SETTINGS AC/VC 18/500/10/75%, O2 SATS > 90%. CARDIAC MONITORING REFLECTS AFIB, HR 60s-70s. ARTERIAL LINE IN PLACE TO RIGHT RADIAL, DRESSING C/D/I WITH NO OOZING OR HEMATOMA NOTED. EPI GTT PUT ON STANDBY THIS SHIFT. SBP 130s AT THIS TIME. CVC TO LIJ PATENT. OG TO LIS, CLEAR/BILE OUTPUT NOTED. TEMP RAMIREZ PATENT AND DRAINING TO GRAVITY, PT AFEBRILE.
[2024-05-24] MEDS ORDERED: Pantoprazole Sodium 40 MG Injection IV SCH (06:00)
[2024-05-24 07:00] VITALS: BP 126/65
--- NOTE | 2024-05-24 07:00 | NUR ---
ASSUMPTION OF CARE PT RECEIVING PROPOFOL 40MCG/KG/MIN AND EPI GTT ON STANDBY. HE REMAINS INTUBATED WITH VENT SETTINGS AC/VC 18/500/10/75%. RASS -2 WITHOUT STIMULI. WITH STIMULI, RASS +1. PT MAKES EYE CONTACT, TRACKS MOVEMENTS, ABLE TO FOLLOW COMMANDS AND HAS STRONG EQUAL MANAGER OF BUSINESS OPERATIONS. LUNGS ARE CLEAR. AFIB ON MONITOR WITH RATE 70S, SBP 120S WITH MAP >65. OGT TO LIS WITH MINIMAL OUTPUT. ABDOMEN DISTENDED AND FIRM. TEMP RAMIREZ PATENT AND DRAINING TO GRAVITY. CORE TEMP 98.6. BED IN LOW POSITION. SEE SHIFT ASSESSMENT.
[2024-05-24] MEDS ORDERED: NS 500 ML IV SCH (07:05)
[2024-05-24] MEDS ORDERED: NS 250 ML IV PRN (07:40)
[2024-05-24] MEDS ORDERED: Magnesium Sulf 2 GM/Water 50ML 50 ML IV ONE (08:40)
[2024-05-24] MEDS ORDERED: FentaNYL Citrate 50 MCG/ML 2 ML Injection IV PRN (09:10)
[2024-05-24] MEDS ORDERED: Midazolam HCl 1MG / ML 2ML Vial IV PRN (09:15)
[2024-05-24 09:33] LABS: pH Blood Arterial 7.53 (7.35-7.45)
[2024-05-24 09:34] LABS: PCO2 Arterial 39.8 mmHg (35-45); PO2 Arterial 73.5 mmHg (80-100)
--- NOTE | 2024-05-24 09:46 | NUR ---
PHONE CODE/FAMILY CALL STAFF UNABLE TO CONTACT FAMILY DUE TO DISCONNECTED EMERGENCY CONTACT NUMBER. PROPOFOL TITRATED TO 20MCG/KG/MIN AND PT MORE ALERT. PT ABLE TO POINT TO PHONE CODE OF "[id number]" AND INDICATE THAT HE WANTS [facility] CALLED. NO ANSWER, VOICEMAIL LEFT. WHEN ASKED IF PT WANTS TO STAY MORE AWAKE HE SHAKES HEAD "NO" WHEN ASKED IF HE WANTS TO BE MORE ASLEEP AND COMFORTABLE, HE NODS HEAD "YES". PROPOFOL TITRATED BACK TO 40MCG/KG/MIN. [facility] [phone]
--- NOTE | 2024-05-24 14:29 | NUR ---
MARLENA PT WRITES ON CLIPBOARD "GIVE ALEC MY WALLET". CAMO PATTERN WALLET GIVEN TO [facility].
--- NOTE | 2024-05-24 17:14 | NUR ---
SHIFT SUMMARY PT RECEIVING PROPOFOL 40MCG/KG/MIN. HE REMAINS INTUBATED WITH VENT SETTINGS AC/VC 18/500/10/50%. HE HAS BEEN AWAKE MOST OF THE DAY. FOLLOWING COMMANDS AND COMMUNICATING TO STAFF AND SON BY WRITING ON A CLIPBOARD. PT NODS IN UNDERSTANDING REGARDING IMPORTANCE OF NOT TOUCHING ETT OR PULLING AT LINES/CORDS. PT HAS BEEN APPROPRIATE THIS AFTERNOON AND RESTRAINTS REMAIN OFF. PT MEDICATED PER EMAR FOR R HIP AND THROAT PAIN. OGT TO LIS WITH MINIMAL OUTPUT. LUNGS ARE CLEAR. AFIB ON MONITOR WITH RATE MOSTLY 70S WITH OCCASIONAL 50S. INVASIVE BP STABLE THROUGHOUT THE DAY WITH MAP >65. RAMIREZ PATENT AND DRAINING TO GRAVITY. BED IN LOW POSITION, CALL LIGHT AND CLIPBOARD/PEN WITHIN REACH.
--- NOTE | 2024-05-24 21:43 | NUR ---
ASSUMED CARE CARE WAS ASSUMED OF PT AT 1900, PT INTUBATED AND SEDATED. PROPOFOL GTT INFUSING, SEE FLOWSHEET. PT ABLE TO FOLLOW COMMANDS, NODS HEAD FOR YES AND NO QUESTIONS. PT NODS HEAD YES WHEN ASKED IF IN PAIN, MEDICATED PT PER EMAR AND REPOSITIONED. PT ABLE TO WRITE SMALL SENTENCES ON CLIPBOARD. PT NOT IN RESTRAINTS, NODS HEAD YES AND GIVES THUMBS UP WHEN PROVIDED EDUCATION REGARDING NOT PULLING ON OR TOUCHING ETT. VENT SETTINGS AC/VC 15/470/7/50%. PT TOLERATING WELL, O2 SATS > 90%. CARDIAC MONITORING REFLECTS AFIB, HR 60s-80s. ARTERIAL LINE IN PLACE TO RIGHT RADIAL, MAP > 65. DRESSING C/D/I, NO OOZING OR HEMATOMA NOTED AT INSERTION SITE. OG TO LIS. TEMP RAMIREZ PATENT AND DRAINING TO GRAVITY. CVC TO LIJ PATENT, DRESSING C/D/I. PIV TO JOVAN SL.
[2024-05-25] VITALS (66 sets, daily range): BP systolic 100–145; BP diastolic 61–112
--- NOTE | 2024-05-25 01:00 | NUR ---
ARTERIAL LINE REMOVAL ARTERIAL LINE TO RIGHT RADIAL REMOVED AT 0042. NON-INVASIVE BLOOD PRESSURE VERIFIED TO CORRELATE WITH ARTERIAL BLOOD PRESSURE. PT EDUCATED INDICATION FOR REMOVAL AND GAVE THUMBS UP. MANUAL PRESSURE HELD FOR 20 MINUTES D/T SMALL HEMATOMA FORMATION DURING MANUAL PRESSURE. NO HEMATOMA/BRUISING/OOZING NOTED AT REMOVAL SITE AT THIS TIME. ARM BOARD IN PLACE. PT TOLERATED WELL.
[2024-05-25 04:38] LABS: BASOPHILS PERCENT AUTO 0 % (0-2); EOSINOPHILS PERCENT AUTO 0 % (0-6); Hematocrit 35.1 % (37.0-53.0); Hemoglobin 11.7 g/dL (13.5-17.5); IMMATURE GRAN ABSOLUTE AUTO 0.03 K/mm3 (0.00-0.10); IMMATURE GRAN PERCENT AUTO 0 % (0-1); LYMPHOCYTES PERCENT AUTO 4 % (21-46); MONOCYTES ABSOLUTE AUTO 1.18 K/mm3 (0.16-1.47); MONOCYTES PERCENT AUTO 14 % (4-13); Mean Corpuscular HGB 30.2 pg (26.0-34.0); Mean Corpuscular HGB Conc 33.3 g/dL (31.5-36.5); Mean Corpuscular Volume 91 fL (80-100); NEUTROPHILS ABSOLUTE AUTO 6.92 K/mm3 (1.96-9.15); NEUTROPHILS PERCENT AUTO 82 % (41-73); Platelet Count 258 K/mm3 (150-400); RDW Coefficient Variation 13.6 % (11.7-14.2); RDW Standard Deviation 45.5 fL (35.1-46.3); Red Blood Cell Count 3.87 M/mm3 (4.30-5.90); White Blood Cell Count 8.43 K/mm3 (4.00-11.30)
[2024-05-25 04:58] LABS: Bun/Creatinine Ratio 25.4 (12.0-20.0); Calcium, Blood 8.8 mg/dL (8.5-10.1); Creatinine, Blood 0.63 mg/dL (0.60-1.20); Magnesium, Blood 2.5 mg/dL (1.6-2.4); Phosphorus, Blood 3.8 mg/dL (2.5-4.9); Potassium, Blood 3.6 mmol/L (3.5-5.5)
--- NOTE | 2024-05-25 05:14 | NUR ---
SHIFT SUMMARY PT REMAINS INTUBATED AND SEDATED. PROPOFOL GTT INFUSING, SEE FLOWSHEET. RASS -2, CPOT 0. PT PLACED IN BILATERAL SOFT WRIST RESTAINTS THIS SHIFT D/T PT PULLING ON ETT HOLSTER WITH BOTH HANDS. PT ABLE TO FOLLOW COMMANDS. VENT SETTINGS AC/VC 15/470/7/50%. O2 SATS > 90%. CARDIAC MONITORING REFLECTS AFIB, HR 60s-80s. SBP 110s. ARTERIAL LINE TO RIGHT RADIAL REMOVED THIS SHIFT, SEE PREVIOUS NURSE NOTE. NO SIGNS OF BLEEDING/HEMATOMA NOTED AT THIS TIME. ARM BOARD IN PLACE. OG TO LIS. TEMP RAMIREZ PATENT AND DRAINING TO GRAVITY. PIV TO RAC SL. CVC TO LIJ PATENT.
[2024-05-25] MEDS ORDERED: MethylPREDNISolone Sod Succ 125 MG Vial IV SCH (07:00)
[2024-05-25] MEDS ORDERED: HYDROcodone 10-APAP 325 TAB PO ONE (11:45)
[2024-05-25] MEDS ORDERED: Metoprolol Tartrate 25 MG Tab PO SCH (12:50)
[2024-05-25] MEDS ORDERED: Morphine Sulfate 4 MG/1 ML Injection IV PRN (13:10)
[2024-05-25] MEDS ORDERED: HYDROcodone 10-APAP 325 TAB PO PRN (13:15)
--- NOTE | 2024-05-25 18:40 | NUR ---
Summary. Pt much improved this shift. Extubated without difficulty at approximately 0950, see RT documentation. On high flow NC at 8L/min, sats >90%. Pt alert and oriented, c/o right hip pain and rib pain. PRN pain meds administered throughout shift. See chart for further details.
--- NOTE | 2024-05-25 21:26 | NUR ---
ASSUMED CARE CARE WAS ASSUMED OF PT AT 1900. PT A/O x4, ABLE TO ANSWER QUESTIONS APPROPRIATELY AND MAKE NEEDS KNOWN BY USING CALL LIGHT. PT STATING HE FEELS FEARFUL GOING TO SLEEP TONIGHT BECAUSE OF PREVIOUS ARREST. THERAPEUTIC COMMUNICATION/CONVERSATION PROVIDED. PT ENDORSES PAIN TO RIBS AND HIPS, 07/11. MEDICATION FOR PAIN PER EMAR. PT ON 8 L HIGH-FLOW N/C, O2 SATS > 90%. CARDIAC MONITORING REFLECTS AFIB, HR 100s-120s. SBP 110s. TEMP RAMIREZ PATENT AND DRAINING TO GRAVITY, PT AFEBRILE. DRESSING TO PREVIOUS RIGHT RADIAL ARTERIAL SITE C/D/I. CVC TO LIJ PATENT, SL. PIV TO RAC SL. PT TOLERATING PO INTAKE.
[2024-05-26] VITALS (26 sets, daily range): BP systolic 99–139; BP diastolic 63–96
[2024-05-26 04:26] LABS: BASOPHILS ABSOLUTE AUTO 0.01 K/mm3 (0.00-0.23); BASOPHILS PERCENT AUTO 0 % (0-2); EOSINOPHILS PERCENT AUTO 0 % (0-6); Hematocrit 38.2 % (37.0-53.0); Hemoglobin 12.5 g/dL (13.5-17.5); IMMATURE GRAN ABSOLUTE AUTO 0.11 K/mm3 (0.00-0.10); IMMATURE GRAN PERCENT AUTO 1 % (0-1); LYMPHOCYTES ABSOLUTE AUTO 0.86 K/mm3 (0.84-5.20); LYMPHOCYTES PERCENT AUTO 7 % (21-46); MONOCYTES ABSOLUTE AUTO 2.32 K/mm3 (0.16-1.47); MONOCYTES PERCENT AUTO 18 % (4-13); Mean Corpuscular HGB 30.5 pg (26.0-34.0); Mean Corpuscular HGB Conc 32.7 g/dL (31.5-36.5); Mean Corpuscular Volume 93 fL (80-100); NEUTROPHILS ABSOLUTE AUTO 9.72 K/mm3 (1.96-9.15); NEUTROPHILS PERCENT AUTO 75 % (41-73); Platelet Count 286 K/mm3 (150-400); RDW Coefficient Variation 13.6 % (11.7-14.2); RDW Standard Deviation 46.5 fL (35.1-46.3); White Blood Cell Count 13.02 K/mm3 (4.00-11.30)
[2024-05-26 04:42] LABS: Bun/Creatinine Ratio 29.2 (12.0-20.0); Calcium, Blood 8.2 mg/dL (8.5-10.1); Creatinine, Blood 0.79 mg/dL (0.60-1.20); Magnesium, Blood 2.4 mg/dL (1.6-2.4); Phosphorus, Blood 4.1 mg/dL (2.5-4.9); Potassium, Blood 3.9 mmol/L (3.5-5.5)
--- NOTE | 2024-05-26 05:29 | NUR ---
SHIFT SUMMARY PT REMAINS A/O x4, NO ACUTE CHANGES THIS SHIFT. PT ABLE TO REPOSITION INDEPENDENTLY IN BED. MEDICATED PT PER EMAR FOR PAIN THIS SHIFT. PT ATTEMPTED TO USE BIPAP TONIGHT BUT ULTIMATELY STAYED ON 8 L N/C. O2 SATS > 90%. CARDIAC MONITORING REFLECTS AFIB, HR 90s-110s. MAP > 65. CVC TO LIJ SL. PIV TO RAC SL. TEMP RAMIREZ PATENT AND DRAINING TO GRAVITY. PT AFEBRILE. TOLERATED PO INTAKE THIS SHIFT.
[2024-05-26] MEDS ORDERED: Metoprolol Succinate 25 MG TABCR PO SCH (09:00)
[2024-05-26] MEDS ORDERED: OxyCODONE HCL 5 MG TAB PO PRN (10:50)
--- NOTE | 2024-05-26 15:00 | NUR ---
SUMMARY PT A/O X4. HAVING PAIN IN RIBS AND HIP TODAY. DR. RHOADES ADJUSTED PAIN MEDS AND PT HAS BEEN DOING MUCH BETTER SINCE. PT/OT ORDERED. CENTRAL LINE REMOVED EARLIER TODAY WITHOUT ISSUE. PT USING INCENTIVE SPIROMETER APPROPRIATELY. NO ISSUES WITH VS. TRANSFERING TO PCU 8 VIA BED. NO SIGN OF DISTRESS.
--- NOTE | 2024-05-26 17:28 | NUR ---
ASSUMED CARE AT 1600. PT TRANSFERRED FRO ICU 7 TO PCU 08, PT ABLE TO STAND TRANSFER TO BED VIA FWW AND GAITBELT VIA 2PA, PT ABLE TO TOLERATE SOME SOB WITH EXERTION NOTED PT ALSO TACH UP TO 150-160'S FOR SHORT AMOUNT OF TIME TRENDED BACK DOWN TO 110'S SOON PT SAT ON THE BED. PT DENIES CHEST PAIN/PRESSURE. PT ALERT AND ORIENTED X4, ABLE TO MAKE NEEDS KNOWN. VITALS HRR AFIB 110'S, SBP 130'S, SATS >90% ON 9L OF O2, AFEBRILE. PT ABLE TO WORK WITH PHYSICAL THERAPY WITH NO ISSUES, PT NOW UP IN THE RECLINER CHAIR EATING DINNER. NO OTHER ISSUES ENCOUNTERED AT THIS TIME, WILL CONTINUE TO MONITOR UNTIL END OF SHIFT
[2024-05-26] MEDS ORDERED: Metoprolol Tartrate 1 MG/ML 5 ML VIAL IV PRN (20:45)
--- NOTE | 2024-05-26 20:46 | NUR ---
ASSUMPTION OF CARE AFTER RECEIVING REPORT FROM SPEEDY RN, THIS RN ASSUMED CARE AT APPROX 1915. PATIENT ALERT AND ORIENTED X4. CAN BE ANXIOUS AT TIMES REGARDING RECENT CARDIAC ARREST. ANXIETY EASES WITH THERAPEUTIC DISCUSSION AT THIS TIME. PERRLA. MOVES ALL EXTREMITIES WITH BLE WEAKNESS - IS A 1-2 PERSON ASSIST WITH FWW, GB TO CHAIR. AFEBRILE. TELEMETRY SHOWING AFIB 90s-100s WITH FREQUENT INCREASES TO 130s-140s WITH ACTIVITY. RECEIVED SCHEDULED 12.5MG PO METOPROLOL THIS MORNING. NO PRN RATE CONTROL ORDERED. MD CONTACTED. RECEIVED ORDER FOR IV LOPRESSOR 5MG Q2H PRN FOR HR >100. REPORTS CHEST PAIN RELATED TO RIB FXs S/P CPR. IS ASYMPTOMATIC OF RATE INCREASES. BP STABLE. ON 9L VIA HI FLOW NC, SATs 90-96%. RESPIRATIONS SHALLOW. RAMIREZ CATHETER IN PLACE DRAINING YELLOW URINE TO GRAVITY. CALL LIGHT IN REACH. WILL CONTINUE TO MONITOR
[2024-05-27] VITALS (16 sets, daily range): BP systolic 125–154; BP diastolic 87–105
--- NOTE | 2024-05-27 05:01 | NUR ---
SHIFT SUMMARY NO ACUTE EVENTS SINCE ASSUMPTION OF CARE NOTE. PATIENT SLEPT INTERMITTENTLY T/O NIGHT, EASILY AROUSABLE WITH VERBAL STIMULI. AFEBRILE. BP STABLE. TELEMETRY CURRENTLY SHOWING AFIB 80s-90s. X2 DOSES OF 5MG IV LOPRESSOR PUSH ADMINISTERED PER EMAR FOR HEART RATE SUSTAINING 110s-130s. PATIENT ASYMPTOMATIC WITH RATE INCREASES, DENIES CHEST PAIN/PRESSURE. REMAINS ON 9L VIA HI FLOW NC, SATs 90-96%. UNABLE TO TOLERATE USE OF BIPAP WITH SLEEP - ATTEMPTED X1. MANAGING RIB PAIN S/P CPR AND CHRONIC R HIP PAIN PER EMAR WITH PO ROXICODONE, ICE PACK, AND REPOSITIONING PRN. RAMIREZ CATHETER IN PLACE DRAINING YELLOW URINE TO GRAVITY. CALL LIGHT IN REACH. WILL CONTINUE TO MONITOR AND REPORT TO ONCOMING RN.
[2024-05-27 05:17] LABS: BASOPHILS ABSOLUTE AUTO 0.02 K/mm3 (0.00-0.23); BASOPHILS PERCENT AUTO 0 % (0-2); EOSINOPHILS ABSOLUTE AUTO 0.02 K/mm3 (0.00-0.68); EOSINOPHILS PERCENT AUTO 0 % (0-6); Hematocrit 42.6 % (37.0-53.0); Hemoglobin 13.6 g/dL (13.5-17.5); IMMATURE GRAN ABSOLUTE AUTO 0.19 K/mm3 (0.00-0.10); IMMATURE GRAN PERCENT AUTO 1 % (0-1); LYMPHOCYTES PERCENT AUTO 8 % (21-46); MONOCYTES ABSOLUTE AUTO 2.31 K/mm3 (0.16-1.47); MONOCYTES PERCENT AUTO 15 % (4-13); Mean Corpuscular HGB 30.5 pg (26.0-34.0); Mean Corpuscular HGB Conc 31.9 g/dL (31.5-36.5); Mean Corpuscular Volume 96 fL (80-100); Mean Platelet Volume 9.4 fL (9.1-12.4); NEUTROPHILS ABSOLUTE AUTO 11.58 K/mm3 (1.96-9.15); NEUTROPHILS PERCENT AUTO 76 % (41-73); Platelet Count 290 K/mm3 (150-400); RDW Coefficient Variation 13.3 % (11.7-14.2); RDW Standard Deviation 47.3 fL (35.1-46.3); Red Blood Cell Count 4.46 M/mm3 (4.30-5.90); White Blood Cell Count 15.32 K/mm3 (4.00-11.30)
[2024-05-27] MEDS ORDERED: Pantoprazole Sodium 40 MG Tab PO SCH (06:00)
[2024-05-27 06:06] LABS: Albumin, Blood 2.9 g/dL (3.4-5.0); Anion Gap 7 mmol/L (3-11); Blood Urea Nitrogen 23 mg/dL (8-24); Bun/Creatinine Ratio 29.6 (12.0-20.0); CO2, Blood 34 mmol/L (21-32); Calcium, Blood 8.6 mg/dL (8.5-10.1); Chloride, Blood 96 mmol/L (98-108); Creatinine, Blood 0.78 mg/dL (0.60-1.20); Glomerular Filtration Rate 98 (60-); Glucose, Blood 145 mg/dL (70-99); Phosphorus, Blood 3.7 mg/dL (2.5-4.9); Sodium, Blood 133 mmol/L (136-145)
[2024-05-27] MEDS ORDERED: Metoprolol Succinate 25 MG TABCR PO ONE (10:15)
--- NOTE | 2024-05-27 10:15 | NUR ---
AM NOTES; PT UP IN THE RECLINER CHAIR THIS MORNING 1PA VIA FWW SBA. VITALS HRR REMAINS AFIB 90-100 AT REST TACHS UP TO 140S WITH EXERTION, SBP 130-150'S, SATS ABOVE 90% ON 6L THIS MORNING TITRATED DOWN TO 4L, AFEBRILE. DENIES CHEST PAIN/PRESSURE AND SOB. ANXIOUS AT TIMES. CALLED DR MEDEROS ABOUT INCREASE HRR WITH EXERTION ORDERED TO INCREASE METOPROLOL SUCC TO 25MG DAILY AND ZIO PATCH UPON DISCHARGE. PT CURRENTLY BLADDER TRAINING FOR CATHETER REMOVAL. PT MEDICATED FOR PAIN (RIBS AND HIPS) PT USES ICE PACK AND PILLOWS FOR PAIN RELIEF. PT WOULD LIKE SHOWER TODAY AGREED TO WAIT UNTIL CATHETER IS REMOVED LATER ON TODAY. NO OTHER ISSUES ENCOUNTERED WILL CONTINUE TO MONITOR T/O SHIFT
[2024-05-27] MEDS ORDERED: LORazepam 0.5 MG Tab PO ONE (12:35)
--- NOTE | 2024-05-27 13:29 | NUR ---
Patient is stting up in bed and alert. He tells me about his medical problems and the plan of care to address those issues. He shares about being one of five brothers; two have , one is battling cancer, one is healthy and the patient is having heart issues. He explains that his way of dealing with struggles and challenges is by, time with his family and playing music. He expresses no shinto beliefs and states that he is positive things will go in a good trajectory for him. I reinforce helpful attitudes and perspectives and provide therapeutic listening and a calming presence. Canelo voices that spiritual care is welcome in his room any time and he shows signs of an elevated mood.
[2024-05-27] MEDS ORDERED: dilTIAZem HCL 125 MG in Dextrose 5% 100 ML IV SCH (14:15)
--- NOTE | 2024-05-27 17:09 | NUR ---
PT SUMMARY/UPDATE PT STILL TACHING UP TO AFIB RVR 160-170'S UPON GETTING TO THE BATHROOM PT GOT SHORT OF BREATH GETTING BACK TO BED, PT HAS CHEST/RIB PAIN AND WAS MEDICATED. PT WAS GIVEN LORAZEPAM O.25MG PO X1, PT STATED IT HELPED WITH HIS ANXIETY BUT HRR STILL UP TO 130'S. DR MEDEROS MADE AWARE STARTED PT ON CARDIZEM GTT AT 5MG UP TO 10 MG. HRR SUSTAINED 70-90'S BUT STILL GOES UP TO 130'S WITH EXERTION. PT CURRENTLY UP IN THE CHAIR AND CARDIZEM GTT TITRATED DOWN 5MG/HR. PT NOW EATING DINNER. SBP 140'S, SATS ABOVE 92% ON 6L OF O2, AFEBRILE. PT HAS BEEN AMBUALTING IN THE ROOM VIA WALKER SBA. NO OTHER ISSUES REPORTED WILL REPORT TO ONCOMING SHIFT
[2024-05-28] VITALS (11 sets, daily range): BP systolic 128–162; BP diastolic 72–108
--- NOTE | 2024-05-28 06:01 | NUR ---
SHIFT SUMMARY PATIENT ALERT AND ORIENTED x4 T/O THIS SHIFT. COMPLAINS OF PAIN 7-8/10 TO HIS RIBS AND HIPS. TREATED WITH PRN OXYCODONE 10MG PER ORDERS, PLEASE SEE MAR FOR DETAILS, LITTLE IMPROVEMENT IN PAIN POST MEDICATION. LUNG SOUNDS DIMINISHED, RECEIVING NEBS PER RT, BREATHING UNLABORED WITH EVEN CHEST RISE AND FALL. TOLERATING 6L VIA NC WELL, SPO2 92%. CARDIZEM GTT @ 5MG/HR. HR 90'S - 100'S CURRENTLY. VOIDS PER URINAL. PATIENT APPEARED TO HAVE A VERY HARD TIME SLEEPING OVERNIGHT, FREQUENTLY WAKING UP AND GETTING INTO THE RECLINER OVER NIGHT. NO ACUTE EVENTS OVERNIGHT.
[2024-05-28 06:50] LABS: Albumin, Blood 3.1 g/dL (3.4-5.0); Anion Gap 9 mmol/L (3-11); Blood Urea Nitrogen 19 mg/dL (8-24); CO2, Blood 32 mmol/L (21-32); Calcium, Blood 8.5 mg/dL (8.5-10.1); Chloride, Blood 94 mmol/L (98-108); Creatinine, Blood 0.83 mg/dL (0.60-1.20); Glomerular Filtration Rate 97 (60-); Glucose, Blood 116 mg/dL (70-99); Phosphorus, Blood 3.4 mg/dL (2.5-4.9); Potassium, Blood 4.6 mmol/L (3.5-5.5); Sodium, Blood 130 mmol/L (136-145)
[2024-05-28] MEDS ORDERED: Metoprolol Succinate 25 MG TABCR PO SCH (09:00)
[2024-05-28] MEDS ORDERED: Metoprolol Succinate 50 MG TABCR PO SCH (09:00)
--- NOTE | 2024-05-28 10:42 | NUR ---
AM NOTES; PT STILL ON CARDIZEM GTT AT 5MG/HR UPON SHIFT CHANGE HRR SFIB 90-110'S, SBP 130'S, SATS ABOVE 95% ON 4L OF O2, AFEBRILE. DR MEDEROS CAME BY THIS MORNING ORDERED TO INCREASE METOPROLOL 25MG SUCC TO 50MG AND TO TITRATE CARDIZEM OFF. PT HAD A SHOWER THIS MORNING NO EPISODES OF TACHY UPON EXERTION, PT DID C/O SOME SOB AND FATIGUE AFTER SHOWER, PT WAS RELIEVED UPON GETTING BACK TO CHAIR. PT CURRENTLY WORKING WITH PT/OT AT THIS TIME. DR RHOADES CAME BY AND SAW PT WELL THIS RN MENTIONED PT'S NA LEVEL TRENDING DOWN, RECOMMENDED TO ROBBY AT THIS TIME. PT CONTINUES TO URINATE FREQUENTLY PT CURRENTLY NOT ON DIURETICS MD IS AWARE. PAIN MEDS FOR HIP/RIB PAIN. NO OTHER ISSUES ENCOUNTERED WILL CONTINUE TO MONITOR
[2024-05-28] MEDS ORDERED: Metoprolol Succinate 25 MG TABCR PO ONE (14:30)
--- NOTE | 2024-05-28 15:29 | NUR ---
PT HRR WENT UP TO 150-160'S AGAIN AFTER LUNCH TIME WITH AMBULATION IN THE ROOM. MILD SOB PER PT. DR MEDEROS MADE AWARE. ADDITIONAL DOSE OF METOPROLOL 25MG WAS GIVEN HRR NOW STAYED AT 90-100'S. SBP 130-140'S. SATS ABOVE 95% ON 4L OF O2. PT HAS BEEN UP IN THE RECLINER. PAIN MANAGED WITH PO PAIN MEDS. SON CAME BY TODAY WAS GIVEN UPDATE REGARDING PT'S STATUS. NO OTHER ISSUES REPORTED. REPORT GIVEN TO MACK MERCADO
[2024-05-28] MEDS ORDERED: dilTIAZem HCL 120 MG CAP.CD PO SCH (17:50)
[2024-05-29] VITALS (12 sets, daily range): BP systolic 127–156; BP diastolic 71–129
[2024-05-29 04:36] LABS: Anion Gap 7 mmol/L (3-11); Blood Urea Nitrogen 19 mg/dL (8-24); Bun/Creatinine Ratio 25.9 (12.0-20.0); CO2, Blood 34 mmol/L (21-32); Calcium, Blood 8.4 mg/dL (8.5-10.1); Chloride, Blood 95 mmol/L (98-108); Creatinine, Blood 0.74 mg/dL (0.60-1.20); Glomerular Filtration Rate 100 (60-); Glucose, Blood 120 mg/dL (70-99); Potassium, Blood 4.6 mmol/L (3.5-5.5); Sodium, Blood 131 mmol/L (136-145)
[2024-05-29] MEDS ORDERED: Metoprolol Succinate 50 MG TABCR PO SCH (09:00)
[2024-05-29] MEDS ORDERED: OxyCODONE HCL 5 MG TAB PO PRN (10:20)
[2024-05-29] MEDS ORDERED: Polyethylene Glycol 3350 17 gm PO PRN (10:20)
[2024-05-29] MEDS ORDERED: Glucagon, Human Recombinant 1 MG/Vial IV PRN (13:00)
--- NOTE | 2024-05-29 13:15 | NUR ---
RAPID RESPONSE Kendra from tele called, pt apple in the 40's, this rn and other to room, lowest heart rate 19-20's. Dr Rick called. Rapid called. BP stable. Pt awake answering questions. EKG completed, code cart to room, pads placed. Rapid team to room, 1mg atropine given. Dr Rick to room. Heart rate trending up to 70's. D/C metoprolol and cardizem, plans for pacemaker, need to [facility] for pacemaker.
[2024-05-29] MEDS ORDERED: Atropine Sulfate 0.1 MG/ML 10ML SYR IV ONE (16:41)
[2024-05-29] MEDS ORDERED: Glucagon 1 MG/KIT VIAL IV ONE (16:41)
--- NOTE | 2024-05-29 17:51 | NUR ---
SHIFT SUMMARY PT ALERT, ORIENTED X4; CALM AND COOPERATIVE WITH CARE. PT RESTING IN BED. UP WITH SBA IN ROOM. PT REPORTING PAIN TO HIPS/RIBS, DISCUSSED WITH MD; MEDICATED PER EMAR. PT DENIES CHEST PAIN/PRESSURE, SOB, NASUEA, DIZZINESS AND NUMB/TINGLING. SPO2 >90% ON 4-5L O2 VIA NC, ATTEMPTED TO TITRATE FURTHER, PT DESATURATED TO 80'S. TELE AFIB WITH BBB, PT ADAM DOWN TO 19 THIS AFTERNOON, RAPID CALLED, ATROPINE GIVEN; PLANS FOR TRANSFER FOR PACEMAKER PLACEMENT. GLUCOGON AND ZOLL AT BEDSIDE. ABD SOFT, NONTENDER, +BT T/O, PT REPORTING FEELING CONSTIPATED, DISCUSSED WITH MD. EDEMA TO BLE NOTED. OTHER VSS. WILL CONTINUE TO MONITOR.
[2024-05-29] MEDS ORDERED: Docusate Sodium/Senna 1 Tab PO SCH (21:00)
[2024-05-30 00:10] VITALS: BP 134/97
[2024-05-30 03:20] VITALS: BP 151/102
--- NOTE | 2024-05-30 05:32 | NUR ---
SHIFT SUMMARY ASSUMED CARE OF PATIENT AT 1900. PATIENT ALERT AND ORIENTED x4 THROUGHOUT SHIFT. COMPLAINS OF PAIN TO RIBS AND HIPS. PAIN TREATED WITH PRN OXYCODONE Q6 PER ORDERS, SEE MAR FOR DETAILS. ON TELE, PT REMAINS IN AFIB, RATE BETWEEN 90'S - 110'S AT REST. WITH EXERTION, HR > 120'S WITH MODERATE DYSPNEA. HTN NOTED, SBP 150'S MAX. NO ACUTE EVENTS OVERNIGHT. AWAITING TRANSFER TO [facility].
== END 2024-05-30 06:23 | disposition short-term general hospital (02) | DRG 208 ==
LOC: ER 10:06 → ICUE 12:43 → PCU 12:43 → ICUE 14:55 → PCU 05-22 18:33 → ICUE 05-23 13:56 → PCU 05-26 15:29
PROVIDERS: Emergency Medicine; Internal Medicine; Internal Medicine Critical Care Medicine; Student in an Organized Health Care Education/Training Program; ADMIT Internal Medicine
PROC: 5A1945Z Respiratory Ventilation, 24-96 Consecutive Hours (ICD-10-PCS; principal; 2024-05-23)
PROC: 3E033XZ Introduction of Vasopressor into Peripheral Vein, Percutaneous Approach (ICD-10-PCS; 2024-05-23)
PROC: 5A12012 Performance of Cardiac Output, Single, Manual (ICD-10-PCS; 2024-05-23)
PROC: 4A133R1 Monitoring of Arterial Saturation, Peripheral, Percutaneous Approach (ICD-10-PCS; 2024-05-23)
PROC: 0BH17EZ Insertion of Endotracheal Airway into Trachea, Via Natural or Artificial Opening (ICD-10-PCS; 2024-05-23)
PROC: 02HV33Z Insertion of Infusion Device into Superior Vena Cava, Percutaneous Approach (ICD-10-PCS; 2024-05-23)
PROC: 03HY32Z Insertion of Monitoring Device into Upper Artery, Percutaneous Approach (ICD-10-PCS; 2024-05-23)
PROC: 4A133B1 Monitoring of Arterial Pressure, Peripheral, Percutaneous Approach (ICD-10-PCS; 2024-05-23)
PROC: 4A133J1 Monitoring of Arterial Pulse, Peripheral, Percutaneous Approach (ICD-10-PCS; 2024-05-23)
PROC: 5A1223Z Performance of Cardiac Pacing, Continuous (ICD-10-PCS; 2024-05-23)
PROC: 0T9B70Z Drainage of Bladder with Drainage Device, Via Natural or Artificial Opening (ICD-10-PCS; 2024-05-23)
PROC: 5A09357 Assistance with Respiratory Ventilation, Less than 24 Consecutive Hours, Continuous Positive Airway Pressure (ICD-10-PCS; 2024-05-25)
DX: J96.01 Acute respiratory failure with hypoxia (principal); I50.33 Acute on chronic diastolic (congestive) heart failure; I46.9 Cardiac arrest, cause unspecified; J18.9 Pneumonia, unspecified organism; R57.0 Cardiogenic shock; E87.1 Hypo-osmolality and hyponatremia; J44.0 Chronic obstructive pulmonary disease with (acute) lower respiratory infection; J44.1 Chronic obstructive pulmonary disease with (acute) exacerbation; I48.92 Unspecified atrial flutter; I48.91 Unspecified atrial fibrillation; I11.0 Hypertensive heart disease with heart failure; T50.1X6A Underdosing of loop [high-ceiling] diuretics, initial encounter; F10.10 Alcohol abuse, uncomplicated; I49.5 Sick sinus syndrome; G89.29 Other chronic pain; M54.9 Dorsalgia, unspecified; K21.9 Gastro-esophageal reflux disease without esophagitis; J20.9 Acute bronchitis, unspecified; I44.7 Left bundle-branch block, unspecified; M25.551 Pain in right hip; F17.210 Nicotine dependence, cigarettes, uncomplicated; R74.02 Elevation of levels of lactic acid dehydrogenase [LDH]; Z91.138 Patient's unintentional underdosing of medication regimen for other reason; Z79.82 Long term (current) use of aspirin; Z95.2 Presence of prosthetic heart valve; Z78.1 Physical restraint status
CPT/HCPCS: 0241U; 31500; 31720; 36415; 36556; 36620; 51702; 71045; 80047; 80048; 80053; 80069; 81001; 82803; 82947; 83605; 83735; 83880; 83930; 84100; 84145; 84295; 84300; 84443; 84484; 85014; 85025; 85610; 85730; 87086; 92950; 93005; 93010; 93306; 94002; 94003; 94640; 94660; 94664; 94760; 94762; 96365-59; 96368; 96375-59; 97110; 97116; 97162; 97166; 97530; 97535; 99285-25; A9270; C1751; C8929; C9113; J0171; J0456; J0461; J0696; J1265; J1610; J1650; J1940; J2250; J2270; J2310; J2704; J2919; J3010; J3475; J7040; J7050; J7060; Q9957